=== PATIENT | female | born 1985 | race Caucasian/White ===

== ENCOUNTER 2019-03-01 13:37 | Outpatient (RCR) | payer MEDICAID ==
[2019-01-11 14:15] LABS: BASOPHILS % (AUTO) 0 % (0-10); EOSINOPHILS # (AUTO) 0.2 10^3/uL (0.0-0.3); EOSINOPHILS % (AUTO) 3 % (0-10); HEMATOCRIT 31 % (35-52); LYMPHOCYTES # (AUTO) 1.3 X 10^3 (1.0-4.0); LYMPHOCYTES % (AUTO) 24 % (12-44); MEAN CORPUSCULAR HEMOGLOBIN 26 PG (25-34); MEAN CORPUSCULAR HGB CONC 32 G/DL (32-36); MEAN CORPUSCULAR VOLUME 81 FL (80-99); MONOCYTES # (AUTO) 0.4 X 10^3 (0.0-1.0); MONOCYTES % (AUTO) 8 % (0-12); NEUTROPHILS # (AUTO) 3.6 X 10^3 (1.8-7.8); NEUTROPHILS % (AUTO) 65 % (42-75); PLATELET COUNT 234 10^3/uL (130-400); RED CELL DISTRIBUTION WIDTH 15.2 % (10.0-14.5); WHITE BLOOD COUNT 5.6 10^3/uL (4.3-11.0)
[2019-01-11 14:47] LABS: ALANINE AMINOTRANSFERASE 13 U/L (0-55); ALBUMIN 4.2 GM/DL (3.2-4.5); ALKALINE PHOSPHATASE 90 U/L (40-136); BILIRUBIN,TOTAL 0.3 MG/DL (0.1-1.0); BUN/CREATININE RATIO 23; CALCIUM 8.9 MG/DL (8.5-10.1); CARBON DIOXIDE 23 MMOL/L (21-32); CHLORIDE 107 MMOL/L (98-107); CREATININE SERUM 0.82 MG/DL (0.60-1.30); GFR ESTIMATED > 60; GLUCOSE 91 MG/DL (70-105); POTASSIUM 3.9 MMOL/L (3.6-5.0); SODIUM 139 MMOL/L (135-145); TOTAL PROTEIN 7.1 GM/DL (6.4-8.2)
[2019-01-22 16:06] LABS: BASOPHILS % (AUTO) 0 % (0-10); EOSINOPHILS # (AUTO) 0.2 10^3/uL (0.0-0.3); EOSINOPHILS % (AUTO) 3 % (0-10); HEMATOCRIT 32 % (35-52); LYMPHOCYTES # (AUTO) 1.5 X 10^3 (1.0-4.0); LYMPHOCYTES % (AUTO) 27 % (12-44); MEAN CORPUSCULAR HEMOGLOBIN 25 PG (25-34); MEAN CORPUSCULAR HGB CONC 31 G/DL (32-36); MEAN CORPUSCULAR VOLUME 81 FL (80-99); MEAN PLATELET VOLUME 9.4 FL (7.4-10.4); MONOCYTES # (AUTO) 0.4 X 10^3 (0.0-1.0); MONOCYTES % (AUTO) 8 % (0-12); NEUTROPHILS # (AUTO) 3.3 X 10^3 (1.8-7.8); NEUTROPHILS % (AUTO) 62 % (42-75); PLATELET COUNT 349 10^3/uL (130-400); RED CELL DISTRIBUTION WIDTH 15.2 % (10.0-14.5); WHITE BLOOD COUNT 5.4 10^3/uL (4.3-11.0)
[2019-01-22 16:33] LABS: ALANINE AMINOTRANSFERASE 14 U/L (0-55); ALBUMIN 4.1 GM/DL (3.2-4.5); ALKALINE PHOSPHATASE 102 U/L (40-136); BILIRUBIN,TOTAL 0.2 MG/DL (0.1-1.0); BUN/CREATININE RATIO 23; CARBON DIOXIDE 29 MMOL/L (21-32); CHLORIDE 107 MMOL/L (98-107); CREATININE SERUM 0.73 MG/DL (0.60-1.30); GFR ESTIMATED > 60; GLUCOSE 92 MG/DL (70-105); POTASSIUM 3.8 MMOL/L (3.6-5.0); SODIUM 142 MMOL/L (135-145); TOTAL PROTEIN 7.3 GM/DL (6.4-8.2)
[2019-02-22 10:35] LABS: BASOPHILS % (AUTO) 0 % (0-10); EOSINOPHILS # (AUTO) 0.1 10^3/uL (0.0-0.3); EOSINOPHILS % (AUTO) 1 % (0-10); HEMATOCRIT 34 % (35-52); HEMOGLOBIN 10.6 G/DL (11.5-16.0); LYMPHOCYTES # (AUTO) 1.2 X 10^3 (1.0-4.0); LYMPHOCYTES % (AUTO) 25 % (12-44); MEAN CORPUSCULAR HEMOGLOBIN 25 PG (25-34); MEAN CORPUSCULAR HGB CONC 32 G/DL (32-36); MEAN CORPUSCULAR VOLUME 79 FL (80-99); MEAN PLATELET VOLUME 9.5 FL (7.4-10.4); MONOCYTES # (AUTO) 0.3 X 10^3 (0.0-1.0); MONOCYTES % (AUTO) 6 % (0-12); NEUTROPHILS # (AUTO) 3.4 X 10^3 (1.8-7.8); NEUTROPHILS % (AUTO) 68 % (42-75); PLATELET COUNT 338 10^3/uL (130-400); RED CELL DISTRIBUTION WIDTH 16.2 % (10.0-14.5)
[2019-02-22 10:55] LABS: ALANINE AMINOTRANSFERASE 19 U/L (0-55); ALBUMIN 4.1 GM/DL (3.2-4.5); ALKALINE PHOSPHATASE 113 U/L (40-136); BILIRUBIN,TOTAL 0.4 MG/DL (0.1-1.0); BUN/CREATININE RATIO 14; CARBON DIOXIDE 28 MMOL/L (21-32); CHLORIDE 105 MMOL/L (98-107); CREATININE SERUM 0.81 MG/DL (0.60-1.30); GFR ESTIMATED > 60; GLUCOSE 106 MG/DL (70-105); POTASSIUM 3.6 MMOL/L (3.6-5.0); SODIUM 141 MMOL/L (135-145); TOTAL PROTEIN 6.9 GM/DL (6.4-8.2)
[2019-03-01 13:56] LABS: BASOPHILS % (AUTO) 0 % (0-10); EOSINOPHILS # (AUTO) 0.1 10^3/uL (0.0-0.3); EOSINOPHILS % (AUTO) 2 % (0-10); HEMATOCRIT 31 % (35-52); HEMOGLOBIN 9.7 G/DL (11.5-16.0); LYMPHOCYTES # (AUTO) 1.2 X 10^3 (1.0-4.0); LYMPHOCYTES % (AUTO) 20 % (12-44); MEAN CORPUSCULAR HEMOGLOBIN 26 PG (25-34); MEAN CORPUSCULAR HGB CONC 32 G/DL (32-36); MEAN CORPUSCULAR VOLUME 81 FL (80-99); MEAN PLATELET VOLUME 9.8 FL (7.4-10.4); MONOCYTES # (AUTO) 0.4 X 10^3 (0.0-1.0); MONOCYTES % (AUTO) 7 % (0-12); NEUTROPHILS # (AUTO) 4.2 X 10^3 (1.8-7.8); NEUTROPHILS % (AUTO) 72 % (42-75); PLATELET COUNT 296 10^3/uL (130-400); RED CELL DISTRIBUTION WIDTH 16.9 % (10.0-14.5); WHITE BLOOD COUNT 5.8 10^3/uL (4.3-11.0)
[2019-03-01 14:15] LABS: ALANINE AMINOTRANSFERASE 18 U/L (0-55); ALBUMIN 4.1 GM/DL (3.2-4.5); ALKALINE PHOSPHATASE 104 U/L (40-136); BILIRUBIN,TOTAL 0.3 MG/DL (0.1-1.0); BUN/CREATININE RATIO 19; CARBON DIOXIDE 23 MMOL/L (21-32); CHLORIDE 108 MMOL/L (98-107); CREATININE SERUM 1.02 MG/DL (0.60-1.30); GFR ESTIMATED > 60; GLUCOSE 121 MG/DL (70-105); POTASSIUM 3.4 MMOL/L (3.6-5.0); SODIUM 142 MMOL/L (135-145)
== END 2019-04-11 | disposition home or self-care (01) ==
LOC: ONC 13:37
PROVIDERS: ATTEND Internal Medicine Hematology & Oncology
DX: C49.A3 Gastrointestinal stromal tumor of small intestine (principal)
CPT/HCPCS: 36415; 80053; 83615; 84443; 85025; 99213; 99214

== ENCOUNTER → 2019-03-01 | Outpatient (CLI) | payer BC, MEDICAID ==
[~2019-03-01] MED LIST: FRS325T PO; NITR-65 PO; OXYC-12 PO; PREN1TAB14 PO; PREN1TAB39 PO
--- NOTE | 2019-03-01 13:26 | Diagnostic Imaging Report ---
INDICATION: Right breast density. Study is performed for additional views. Correlation is made with screening study from 02/20/2019. Unilateral right 2-D and 3-D diagnostic mammography was performed with CAD. This included spot compression CC, rolled CC and 90 degree lateral views. Additional views fail to demonstrate a discrete mass. The area of density noted on the screening study shows normal dispersion and most likely represented superimposed tissue. No suspicious calcifications are seen. IMPRESSION: BI-RADS Category 1 Additional views fail to demonstrate a discrete mass. Patient may return to routine annual screening mammography. ACR BI-RADS Category 1: Negative. Result letter will be mailed to the patient. Note: At least 10% of breast cancer is not imaged by mammography. Dictated by: Dictated on workstation # [id number]
== END ==
LOC: RAD 12:53
PROVIDERS: ATTEND Internal Medicine Hematology & Oncology
DX: N63.10 Unspecified lump in the right breast, unspecified quadrant (principal); R92.2 Inconclusive mammogram

== ENCOUNTER → 2019-05-10 | Outpatient (CLI) | payer BC ==
[~2019-05-10] MED LIST changes: +CATHETER FLUSH 10 ML SYR IV PRN; +HOLD METFORMIN - RECEIVED CONTRAST 20 ML VIAL IV SCH; +IOHEXOL 350 MG/ML 100 ML (OMNIPAQUE 350) VIAL IV ONE; +NS 100 ML (IVPB) BAG IV ONE
--- NOTE | 2019-05-10 13:25 | Diagnostic Imaging Report ---
PROCEDURE: CT abdomen and pelvis with contrast, rule out appendicitis. TECHNIQUE: Multiple contiguous axial images were obtained through the abdomen and pelvis after the administration of intravenous contrast. All CT scans use one or more of the following dose optimizing techniques: automated exposure control, MA and/or KvP adjustment based on a patient size and exam type, or iterative reconstruction. INDICATION: Right upper quadrant abdominal pain. Patient has history of GIST tumor removed six months ago. COMPARISON: No prior studies are available for comparison. FINDINGS: The lung bases are clear. No discrete liver mass is detected. The gallbladder is surgically absent. No biliary ductal dilatation is seen. The pancreas and spleen are unremarkable. No adrenal mass is detected. Kidneys are unremarkable. Aorta is nonaneurysmal. No central retroperitoneal or mesenteric lymphadenopathy is detected. The small and large bowel loops are normal caliber. There is no ascites or fluid collection. No definite pelvic lymphadenopathy is seen. The uterus is unremarkable. There appear to be multiple cervical nabothian cysts. The bladder is unremarkable. The bony structures are nonacute. IMPRESSION: Essentially unremarkable CT of the abdomen and pelvis. No acute feature is detected. Dictated by: Dictated on workstation # [id number]
== END ==
LOC: RAD FS 12:35
PROVIDERS: ATTEND Surgery
DX: C49.A4 Gastrointestinal stromal tumor of large intestine (principal); C49.A3 Gastrointestinal stromal tumor of small intestine; E66.01 Morbid (severe) obesity due to excess calories; Z68.41 Body mass index [BMI] 40.0-44.9, adult
CPT/HCPCS: 74177

== ENCOUNTER → 2019-05-31 | Outpatient (CLI) | payer BC ==
[~2019-05-31] MED LIST changes: -CATHETER FLUSH 10 ML SYR IV PRN; -HOLD METFORMIN - RECEIVED CONTRAST 20 ML VIAL IV SCH; -IOHEXOL 350 MG/ML 100 ML (OMNIPAQUE 350) VIAL IV ONE; -NS 100 ML (IVPB) BAG IV ONE
[2019-05-31 10:06] LABS: BASOPHILS % (AUTO) 0 % (0-10); EOSINOPHILS # (AUTO) 0.1 10^3/uL (0.0-0.3); EOSINOPHILS % (AUTO) 1 % (0-10); HEMATOCRIT 37 % (35-52); HEMOGLOBIN 12.5 G/DL (11.5-16.0); LYMPHOCYTES # (AUTO) 1.2 X 10^3 (1.0-4.0); LYMPHOCYTES % (AUTO) 15 % (12-44); MEAN CORPUSCULAR HEMOGLOBIN 27 PG (25-34); MEAN CORPUSCULAR HGB CONC 34 G/DL (32-36); MEAN CORPUSCULAR VOLUME 80 FL (80-99); MEAN PLATELET VOLUME 9.4 FL (7.4-10.4); MONOCYTES # (AUTO) 0.5 X 10^3 (0.0-1.0); MONOCYTES % (AUTO) 6 % (0-12); NEUTROPHILS # (AUTO) 6.3 X 10^3 (1.8-7.8); NEUTROPHILS % (AUTO) 78 % (42-75); PLATELET COUNT 345 10^3/uL (130-400); RED CELL DISTRIBUTION WIDTH 15.2 % (10.0-14.5); WHITE BLOOD COUNT 8.1 10^3/uL (4.3-11.0)
[2019-05-31 10:27] LABS: ALANINE AMINOTRANSFERASE 23 U/L (0-55); ALBUMIN 4.4 GM/DL (3.2-4.5); ALKALINE PHOSPHATASE 99 U/L (40-136); BILIRUBIN,TOTAL 0.5 MG/DL (0.1-1.0); BUN/CREATININE RATIO 17; CALCIUM 9.5 MG/DL (8.5-10.1); CARBON DIOXIDE 25 MMOL/L (21-32); CHLORIDE 102 MMOL/L (98-107); CREATININE SERUM 0.82 MG/DL (0.60-1.30); GFR ESTIMATED > 60; GLUCOSE 114 MG/DL (70-105); POTASSIUM 3.8 MMOL/L (3.6-5.0); SODIUM 137 MMOL/L (135-145); TOTAL PROTEIN 7.6 GM/DL (6.4-8.2)
== END ==
LOC: EDSTATUS 10:11 → ONC 10:12
PROVIDERS: ATTEND Internal Medicine Hematology & Oncology
DX: C49.A3 Gastrointestinal stromal tumor of small intestine (principal)
CPT/HCPCS: 80053; 83615; 84443; 85025; 99213

== ENCOUNTER 2019-08-16 10:18 | Outpatient (RCR) | payer BC ==
[2019-08-16 10:29] LABS: BASOPHILS % (AUTO) 0 % (0-10); EOSINOPHILS # (AUTO) 0.1 10^3/uL (0.0-0.3); EOSINOPHILS % (AUTO) 1 % (0-10); HEMATOCRIT 38 % (35-52); HEMOGLOBIN 12.6 G/DL (11.5-16.0); LYMPHOCYTES % (AUTO) 18 % (12-44); MEAN CORPUSCULAR HEMOGLOBIN 27 PG (25-34); MEAN CORPUSCULAR HGB CONC 33 G/DL (32-36); MEAN CORPUSCULAR VOLUME 82 FL (80-99); MEAN PLATELET VOLUME 9.2 FL (7.4-10.4); MONOCYTES # (AUTO) 0.4 X 10^3 (0.0-1.0); MONOCYTES % (AUTO) 7 % (0-12); NEUTROPHILS # (AUTO) 4.3 X 10^3 (1.8-7.8); NEUTROPHILS % (AUTO) 74 % (42-75); PLATELET COUNT 358 10^3/uL (130-400); RED CELL DISTRIBUTION WIDTH 15.1 % (10.0-14.5); WHITE BLOOD COUNT 5.8 10^3/uL (4.3-11.0)
[2019-08-16 10:50] LABS: ALANINE AMINOTRANSFERASE 44 U/L (0-55); ALBUMIN 4.3 GM/DL (3.2-4.5); ALKALINE PHOSPHATASE 143 U/L (40-136); BILIRUBIN,TOTAL 0.5 MG/DL (0.1-1.0); BUN/CREATININE RATIO 19; CALCIUM 9.4 MG/DL (8.5-10.1); CARBON DIOXIDE 27 MMOL/L (21-32); CHLORIDE 104 MMOL/L (98-107); CREATININE SERUM 0.86 MG/DL (0.60-1.30); GFR ESTIMATED > 60; GLUCOSE 98 MG/DL (70-105); SODIUM 142 MMOL/L (135-145); TOTAL PROTEIN 7.8 GM/DL (6.4-8.2)
== END 2019-11-14 | disposition home or self-care (01) ==
LOC: OCC 10:18
PROVIDERS: ATTEND Internal Medicine Hematology & Oncology
DX: Z51.81 Encounter for therapeutic drug level monitoring (principal); C49.A3 Gastrointestinal stromal tumor of small intestine; Z90.49 Acquired absence of other specified parts of digestive tract
CPT/HCPCS: 80053; 83615; 85025; G0463

== ENCOUNTER 2019-11-18 16:01 | Emergency (ER) | payer BC ==
[~2019-11-18] VITALS: Ht 162 cm; Wt 93.5 kg
--- NOTE | 2019-11-18 16:16 | ED GI ---
General Chief Complaint: Abdominal/GI Problems Stated Complaint: ABD PAIN/BLOOD IN STOOL History of Present Illness Date Seen by Provider: Nov 18, 2019 Time Seen by Provider: 16:11 Initial Comments 34-year-old female presents with abdominal pain and cramping, bruise on her left flank that she is unsure where it came from. Some pain in her flank. And some bloody stool. Patient reports that she had a stomachache and some pain earlier today and she is out of the bathroom. She went home and after while she had a loose stool and then it became bloody with. Bright red blood. Patient denies any recent injuries to her flank that would cause a bruise. 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 Patient denies any fevers or chills. She is nauseated but has not vomited. Allergies and Home Medications Allergies Coded Allergies: Codeine (Unverified Adverse Reaction, Mild, 08/23/10) Home Medications Ferrous Sulfate 325 Mg Tablet, 1 TAB PO BID, (Reported) Oxycodone Hcl/Acetaminophen 1 Each Tablet, 1 EACH PO Q4H, (Reported) As needed for pain Vits W-Ca,Fe,Fa(<1MG) 1 Each Tablet, 1 EACH PO DAILY, (Reported) Take for as long as Patient Home Medication List Home Medication List Reviewed: Yes Review of Systems Review of Systems Constitutional: No chills, No fever EENTM: No Symptoms Reported Respiratory: Denies Cough, Denies Shortness of Air Cardiovascular: Denies Chest Pain, Denies Irregular Heart Rate, Denies Lightheadedness Gastrointestinal: Abdominal Pain, Diarrhea, Nausea, Rectal Bleeding; Denies V omiting Musculoskeletal: back pain Skin: other (ecchymosis left flank) Psychiatric/Neurological: No Symptoms Reported Endocrine: No Symptoms Reported Hematologic/Lymphatic: No Symptoms Reported Past Potkgtg-Oxnohz-Vdwkir Hx Past Med/Social Hx: Reviewed Nursing Past Med/Soc Hx Patient Social History Recent Foreign Travel: No Contact w/Someone Who Travel: No Past Medical History Reproductive Disorders: No Physical Exam Vital Signs Vital Signs - First Documented 11/18/19 16:19 Temp 36.5 Pulse 87 Resp 18 B/P (MAP) 131/76 (94) Pulse Ox 100 Capillary Refill : Height/Weight/BMI Height: '" Weight: lbs. oz. kg; BMI Method: General Appearance: no apparent distress HEENT: PERRL/EOMI Neck: full range of motion Respiratory: chest non-tender, lungs clear Cardiovascular: normal peripheral pulses, regular rate, rhythm Gastrointestinal: soft; No distended, No guarding, No rebound; tenderness (mild bilateral lower quad) Rectal: normal rectal tone, heme positive stool, hemorrhoids Extremities: normal range of motion Back: CVA tenderness (L) Neurologic/Psychiatric: wad blanking press adjuster II-XII nml as tested, alert, normal mood/affect, oriented x 3 Skin: ecchymosis (left flank) Progress/Results/Core Measures Results/Orders Lab Results Laboratory Tests Test 11/18/19 16:15 11/18/19 16:20 Range/Units Urine Color YELLOW Urine Clarity SL CLOUDY Urine pH 5.5 5-9 Urine Specific [place] >1.030 1.016-1.022 Urine Protein NEGATIVE NEGATIVE Urine Glucose (UA) NEGATIVE NEGATIVE Urine Ketones NEGATIVE NEGATIVE Urine Nitrite NEGATIVE NEGATIVE Urine Bilirubin 1+ H NEGATIVE Urine Urobilinogen 0.2 < = 1.0 MG/DL Urine Leukocyte Esterase NEGATIVE NEGATIVE Urine RBC (Auto) NEGATIVE NEGATIVE Urine RBC NONE /HPF Urine WBC NONE /HPF Urine Squamous Epithelial Cells 5-10 /HPF Urine Crystals NONE /LPF Urine Bacteria NONE /HPF Urine Casts NONE /LPF Urine Mucus SMALL H /LPF Urine Culture Indicated NO White Blood Count 8.3 4.3-11.0 10^3/uL Red Blood Count 4.67 4.35-5.85 10^6/uL Hemoglobin 13.2 11.5-16.0 G/DL Hematocrit 40 35-52 % Mean Corpuscular Volume 86 80-99 FL Mean Corpuscular Hemoglobin 28 25-34 PG Mean Corpuscular Hemoglobin Concent 33 32-36 G/DL Red Cell Distribution Width 14.8 H 10.0-14.5 % Platelet Count 260 130-400 10^3/uL Mean Platelet Volume 9.9 7.4-10.4 FL Neutrophils (%) (Auto) 78 H 42-75 % Lymphocytes (%) (Auto) 15 12-44 % Monocytes (%) (Auto) 5 0-12 % Eosinophils (%) (Auto) 2 0-10 % Basophils (%) (Auto) 0 0-10 % Neutrophils # (Auto) 6.4 1.8-7.8 X 10^3 Lymphocytes # (Auto) 1.2 1.0-4.0 X 10^3 Monocytes # (Auto) 0.4 0.0-1.0 X 10^3 Eosinophils # (Auto) 0.2 0.0-0.3 10^3/uL Basophils # (Auto) 0.0 0.0-0.1 10^3/uL Prothrombin Time 13.5 12.2-14.7 SEC INR Comment 1.0 0.8-1.4 Activated Partial Thromboplast Time 28 24-35 SEC Sodium Level 141 135-145 MMOL/L Potassium Level 4.0 3.6-5.0 MMOL/L Chloride Level 102 98-107 MMOL/L Carbon Dioxide Level 28 21-32 MMOL/L Anion Gap 11 5-14 MMOL/L Blood Urea Nitrogen 22 H 7-18 MG/DL Creatinine 1.04 0.60-1.30 MG/DL Estimat Glomerular Filtration Rate 60 BUN/Creatinine Ratio 21 Glucose Level 146 H 70-105 MG/DL Calcium Level 9.4 8.5-10.1 MG/DL Corrected Calcium 9.1 8.5-10.1 MG/DL Total Bilirubin 0.3 0.1-1.0 MG/DL Aspartate Amino Transf (AST/SGOT) 12 5-34 U/L Alanine Aminotransferase (ALT/SGPT) 13 0-55 U/L Alkaline Phosphatase 95 40-136 U/L Total Protein 7.3 6.4-8.2 GM/DL Albumin 4.4 3.2-4.5 GM/DL Lipase 18 8-78 U/L Serum Test, Qualitative NEGATIVE NEGATIVE My Orders Orders - REGINE ARGUETA DO Acute Abd Series (11/18/19 16:18) Comprehensive Metabolic Panel (11/18/19 16:18) Lipase (11/18/19 16:18) Ua Culture If Indicated (11/18/19 16:18) Hcg,Qualitative Serum (11/18/19 16:18) Ed Iv/Invasive Line Start (11/18/19 16:18) Cbc With Automated Diff (11/18/19 16:18) Protime With Inr (11/18/19 16:18) Partial Thromboplastin Time (11/18/19 16:18) Ct Abdomen/Pelvis W (11/18/19 17:16) Iohexol Injection (Omnipaque 350 Mg/Ml 1 (11/18/19 17:30) Received Contrast (Hold Metformin- Contr (11/18/19 17:30) Sodium Chloride Flush (Catheter Flush Sy (11/18/19 17:30) Ns (Ivpb) (Sodium Chloride 0.9% Ivpb Bag (11/18/19 17:30) Medications Given in ED Current Medications Medications Dose Ordered Sig/Serafin Route Start Time Stop Time Status Last Admin Dose Admin Iohexol 100 ml ONCE ONCE IV 11/18/19 17:30 11/18/19 17:31 DC 11/18/19 17:38 100 ML Sodium Chloride 10 ml NEEDED PRN IV 11/18/19 17:30 11/18/19 17:38 10 ML Sodium Chloride 100 ml ONCE ONCE IV 11/18/19 17:30 11/18/19 17:31 DC 11/18/19 17:38 100 ML Vital Signs/I&O 11/18/19 16:19 Temp 36.5 Pulse 87 Resp 18 B/P (MAP) 131/76 (94) Pulse Ox 100 Progress Progress Note : Time: 18:08 Progress Note Patient with colitis on her CT scan. Patient with normal WBC and labs otherwise. I discussed with her the need to have follow-up with a general surgeon for a colonoscopy. At this time I will defer treating her with antibiotics. I recommend she try clear liquid diet for 24 hours and slowly advance her diet. She should follow-up with her primary care provider in a couple days for recheck of her symptoms. She can return to the ER if symptoms worsen. Patient's discharged home in stable condition Diagnostic Imaging Diagonstic Imaging: Xray Plain Films/CT/US/NM/MRI: abdomen Comments [facility] [place], [place] NAME: PATRICIO RANGEL [facility] REC#: [id number] PT STATUS: REG ER : 1985 PHYSICIAN: REGINE ARGUETA DO ADMIT DATE: 11/18/19/ER FS Signed Date of Exam:11/18/19 ACUTE ABD SERIES INDICATION: Lower abdominal pain. Blood in stools The upright chest shows no abnormality. Supine and upright views of the abdomen shows the bowel gas pattern to be within normal limits. There is no free intraperitoneal air. There is no mass or calculus. There are changes of prior cholecystectomy. There is mild scoliosis. IMPRESSION: No acute abnormality is seen. [facility] [place], [place] NAME: PATRICIO RANGEL [facility] REC#: [id number] PT STATUS: REG ER : 1985 PHYSICIAN: REGINE ARGUETA DO ADMIT DATE: 11/18/19/ER FS Draft Date of Exam:11/18/19 CT ABDOMEN/PELVIS W PROCEDURE: CT abdomen and pelvis with contrast. TECHNIQUE: Multiple contiguous axial images were obtained through the abdomen and pelvis after administration of intravenous contrast. Auto Exposure Controls were utilized during the CT exam to meet ALARA standards for radiation dose reduction. INDICATION: Abdominal pain. Rectal bleeding. COMPARISON is made with study from 05/10/2019. FINDINGS: The gallbladder is absent. The liver and bile ducts are normal. The spleen, pancreas and adrenals are normal. Kidneys, ureters and bladder are normal. There is diffuse spasm and edema of the colon from the mid transverse colon down to the rectum consistent with a diffuse colitis. No obstruction or perforation is evident at this time. The proximal colon is not involved and not dilated. Small bowel is within normal limits. There is no ascites. There is no abscess. There is no acute bony abnormality. IMPRESSION: 1. There is diffuse spasm and edema of the left half of the colon consistent with a diffuse colitis. This is a change from the 05/10/2019 CT. Departure Impression Primary Impression: Colitis Disposition: 01 HOME, SELF-CARE Condition: Stable Departure-Patient Inst. Referrals: JENNY WORTHY (PCP/Family) Primary Care Physician Patient Instructions: Colitis (DC) Add. Discharge Instructions: Follow-up with your primary care provider in 2-3 days for recheck of today symptoms All discharge instructions reviewed with patient and/or family. Voiced understanding. REGINE ARGUETA DO Nov 18, 2019 16:16
[2019-11-18 16:32] LABS: BILIRUBIN,URINE 1+ (NEGATIVE); CLARITY,URINE SL CLOUDY; COLOR,URINE YELLOW; GLUCOSE, URINE (UA) NEGATIVE (NEGATIVE); KETONES,URINE NEGATIVE (NEGATIVE); LEUKOCYTE ESTERASE ,URINE NEGATIVE (NEGATIVE); NITRITE,URINE NEGATIVE (NEGATIVE); PH,URINE 5.5 (5-9); PROTEIN,URINE NEGATIVE (NEGATIVE)
[2019-11-18 16:48] LABS: WHITE BLOOD COUNT 8.3 10^3/uL (4.3-11.0)
[2019-11-18 16:49] LABS: BASOPHILS % (AUTO) 0 % (0-10); EOSINOPHILS # (AUTO) 0.2 10^3/uL (0.0-0.3); EOSINOPHILS % (AUTO) 2 % (0-10); HEMATOCRIT 40 % (35-52); HEMOGLOBIN 13.2 G/DL (11.5-16.0); LYMPHOCYTES # (AUTO) 1.2 X 10^3 (1.0-4.0); LYMPHOCYTES % (AUTO) 15 % (12-44); MEAN CORPUSCULAR HEMOGLOBIN 28 PG (25-34); MEAN CORPUSCULAR HGB CONC 33 G/DL (32-36); MEAN CORPUSCULAR VOLUME 86 FL (80-99); MEAN PLATELET VOLUME 9.9 FL (7.4-10.4); MONOCYTES # (AUTO) 0.4 X 10^3 (0.0-1.0); MONOCYTES % (AUTO) 5 % (0-12); NEUTROPHILS # (AUTO) 6.4 X 10^3 (1.8-7.8); NEUTROPHILS % (AUTO) 78 % (42-75); PLATELET COUNT 260 10^3/uL (130-400); RED CELL DISTRIBUTION WIDTH 14.8 % (10.0-14.5)
[2019-11-18 16:58] LABS: ALBUMIN 4.4 GM/DL (3.2-4.5); BILIRUBIN,TOTAL 0.3 MG/DL (0.1-1.0); CALCIUM 9.4 MG/DL (8.5-10.1); CREATININE SERUM 1.04 MG/DL (0.60-1.30); TOTAL PROTEIN 7.3 GM/DL (6.4-8.2)
--- NOTE | 2019-11-18 17:08 | Diagnostic Imaging Report ---
INDICATION: Lower abdominal pain. Blood in stools The upright chest shows no abnormality. Supine and upright views of the abdomen shows the bowel gas pattern to be within normal limits. There is no free intraperitoneal air. There is no mass or calculus. There are changes of prior cholecystectomy. There is mild scoliosis. IMPRESSION: No acute abnormality is seen. Dictated by: Dictated on workstation # [id number]
[2019-11-18] MEDS ORDERED: CATHETER FLUSH 10 ML SYR IV PRN (17:30)
[2019-11-18] MEDS ORDERED: NS 100 ML (IVPB) BAG IV ONE (17:30)
[2019-11-18] MEDS ORDERED: HOLD METFORMIN - RECEIVED CONTRAST 20 ML VIAL IV SCH (17:30)
[2019-11-18] MEDS ORDERED: IOHEXOL 350 MG/ML 100 ML (OMNIPAQUE 350) VIAL IV ONE (17:30)
[2019-11-18 17:57] LABS: PROTHROMBIN TIME PATIENT 13.5 SEC (12.2-14.7)
--- NOTE | 2019-11-18 18:01 | Diagnostic Imaging Report ---
PROCEDURE: CT abdomen and pelvis with contrast. TECHNIQUE: Multiple contiguous axial images were obtained through the abdomen and pelvis after administration of intravenous contrast. Auto Exposure Controls were utilized during the CT exam to meet ALARA standards for radiation dose reduction. INDICATION: Abdominal pain. Rectal bleeding. COMPARISON is made with study from 05/10/2019. FINDINGS: The gallbladder is absent. The liver and bile ducts are normal. The spleen, pancreas and adrenals are normal. Kidneys, ureters and bladder are normal. There is diffuse spasm and edema of the colon from the mid transverse colon down to the rectum consistent with a diffuse colitis. No obstruction or perforation is evident at this time. The proximal colon is not involved and not dilated. Small bowel is within normal limits. There is no ascites. There is no abscess. There is no acute bony abnormality. IMPRESSION: 1. There is diffuse spasm and edema of the left half of the colon consistent with a diffuse colitis. This is a change from the 05/10/2019 CT. Dictated by: Dictated on workstation # [id number]
[2019-11-18 18:22] VITALS: BP 120/74
--- OUTSIDE RECORDS SUMMARY | 2019-11-18 19:39 | XMS REPORT ---
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 Active 94251294 Problem Fibromyalgia M79.7 Active 9327861 05 ALLERGIES Substance Reaction Event Type Date Status Plastic Tape Unknown Non Drug Allergy Jul, Active ENCOUNTERS Encounter Location Date Diagnosis [facility] [address] [place] [address] Sep, Cellulitis of leg L03.119 [facility] [address] [place] [address] Sep, Poison shruti dermatitis L23.7 [facility] [address] [place] [address] Jul, Migraine G43.909 ; Right low back pain M 54.5 and Numbness of fingers R20.0 [facility] [address] [place] [address] Jun, Tonsillitis J03.90 and Sore throat J02.9 [facility] [address] [facility] [id number] [address] [place] [phone] Mar, [facility] [address] [place] [id number] [address] [place] [phone] Mar, [facility] [address] [facility] [id number] [address] [place] [phone] Mar, Acute cystitis with hematuri a N30.01 ; Nausea R11.0 and BMI 40.0-44.9, adult Z68.41 [facility] [address] [facility] [id number] [address] [place] [address] Jan, BMI 40.0-44.9, adult Z68.41 and Acute strain of neck muscle, [facility] [address] [address] 14 Mar, 17 Fibromyalgia M79.[address] [address] 08 Mar, 17 Acute left- sided low back pain without sciatica M54.[address] [address] Mar, 17 Fibromyalgia M79.[address] [address] Mar, 17 Fibromyalgia M79.[address] [address] 14 Dec, 17 Ganglion of left wrist M67.432 and Fibromyalgia M79.[address] [address] Nov, 17 Fibromyalgia M79.[address] [address] 15 Sep, 17 Polyarticular arthritis M13.0 ; Fibromyalgia M79.7 ; Irritable bowel syndrome with constipation K58.1 and Primary osteoarthritis of both knees M17.[address] [address] Sep, 17 Fibromyalgia M79.[address] [address] August, 17 Fatigue, unspecified type R53.83 [facility] [address] [address] August, 17 Fibromyalgia M79.[address] [address] Jun, 17 Polyarticular arthritis M13.0 ; Fibromyalgia M79.7 and Irritable bowel syndrome with constipation K58.1 [facility] [address] [place] [address] Jun, 17 Polyarticular arthritis M13.0 [facility] [address] [place] [address] May, 17 Polyarticular arthritis M13.0 [facility] [address] [place] [address] Jan, 16 Arthralgia, unspecified joint M25.50 and Iron deficiency anemia, unspecified iron deficiency anemia type D50.9 [facility] [address] [place] [address] Nov, 16 Myalgia M79.1 and Iron deficiency anemia, unspecified iron deficiency anemia type D50.9 [facility] [address] [place] [address] Oct, 16 Pain in left wrist M25.532 ; Pain in right wrist M25.531 ; Iron deficiency anemia, unspecified iron deficiency anemia type D50.9 and Constipation, unspecified constipation type K59.00 [facility] [address] [place] [address] Oct, [address] [address] Oct, 16 Pain in right wrist M25.531 ; Pain in left wrist M25.532 and Elevated blood pressure I10 [facility] [address] [id number] [address] [place] [address] Jul, [facility] [address] [facility] [id number] [address] [place] [phone] Jul, [facility] [address] [id number] [address] [place] [phone] August, [facility] [address] [facility] [id number] [address] [place] [phone] August, [facility] [address] [place] [id number] [address] [place] [phone] Jul, [facility] [address] [facility] [id number] [address] [place] [phone] Jul, Margi GAO [address] [place] [address] Mar, [facility] [address] [facility] [id number] [address] [place] [phone] Mar, [facility] [address] [facility] [id number] [address] [place] [phone] Jan, [facility] [address] [facility] [id number] [address] [place] [phone] Jan, [facility] [address] [facility] [id number] [address] [place] [phone] Jan, IMMUNIZATIONS No Known Immunizations SOCIAL HISTORY Never Assessed REASON FOR VISIT EMR-[facility] PLAN OF CARE VITAL SIGNS MEDICATIONS Medication Instructions Dosage Frequency Start Date End Date Duration S tatus Nystatin-Triamcinolone 100,000-0.1 unit/g-% 1 aubrey by Topical route 2 times per day for 14 day(s) Mar, Active RESULTS No Results PROCEDURES No Known procedures INSTRUCTIONS MEDICATIONS ADMINISTERED No Known Medications MEDICAL (GENERAL) HISTORY Type Description Date Medical History depression Medical History alopecia totalis Medical History preeclampsia Surgical History wisdom teeth extraction Surgical History cholecystectomy Surgical History right knee arthroscopy Surgical History section Surgical History dilatation and curettage Surgical History tubal ligation Surgical History ablasion 08/2017 Hospitalization History Surgery(s)/Childbirth(s) only
--- OUTSIDE RECORDS SUMMARY | 2019-11-18 19:39 | XMS REPORT ---
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 Active 54978940 Problem Fibromyalgia M79.7 Active 5207791 05 Problem Primary osteoarthritis of both knees M17.0 Active 596866674 Problem Migraine without status migr ainosus, not intractable, unspecified migraine type G43.909 Active 71951487 ALLERGIES No Information ENCOUNTERS Encounter Location Date Diagnosis [address] [id number], [place] [address] 26 Sep, 2019 [facility] [address] [facility] [address] [place] [address] [address] 24 Sep, 2019 Dental examination Z01.20 and Caries K02 .9 [facility] [address] [id number], [place] [address] 18 Sep, 2019 Mouth pain K13.79 [facility] [facility] [address] [address] 30 Jul, 2019 Dental examination Z01.20 and Caries K02 .9 [facility] [address] 340 [id number], [place] [address] 02 Jun, 2019 Persistent cough R05 ; Flu-l bobo symptoms R68.89 and Wheezing R06.2 [facility] [address] [id number] [place] [address] Oct, Constipation, unspecified co nstipation type K59.00 and Right upper quadrant abdominal pain R10.11 [facility] [address] [id number] [place] [address] Sep, Cellulitis of leg L03.119 [facility] [address] [id number], [place] [address] Sep, Poison shruti dermatitis L23.7 [facility] [address] [id number], [place] [address] Jul, Migraine G43.909 ; Right low back pain M54.5 and Numbness of fingers R20.0 [facility] [address] [id number] [place] [address] Jun, Tonsillitis J03.90 and Sore throat J02.9 [facility] [address] [place] [id number] [address] [place] [address] Mar, [facility] [address] [place] [address] Mar, [facility] [address] [place] [address] Mar, Acute cystitis with hematuri a N30.01 ; Nausea R11.0 and BMI 40.0-44.9, adult Z68.41 [facility] [address] [place] [id number] [address] [place] [address] Jan, BMI 40.0-44.9, adult Z68.41 and Acute strain of neck muscle, initial encounter S16.1[facility] [address] [place] [address] 14 Mar, Fibromyalgia M79.7 [facility] [address] [place] [address] 08 Mar, Acute left- sided low back pain without sciatica M54.5 [facility] [address] [place] [address] Mar, 17 Fibromyalgia M79.7 [facility] [address] [place] [address] 06 Mar, 17 Fibromyalgia M79.7 [facility] [address] [place] [address] 14 Dec, 17 Ganglion of left wrist M67.432 and Fibromyalgia M79.7 [facility] [address] [place] [address] Nov, 17 Fibromyalgia M79.7 [facility] [address] [place] [address] 15 Sep, 17 Polyarticular arthritis M13.0 ; Fibromyalgia M79.7 ; Irritable bowel syndrome with constipation K58.1 and Primary osteoarthritis of both knees M17.0 [facility] [address] [place] [address] Sep, 17 Fibromyalgia M79.7 [facility] [address] [place] [address] August, 17 Fatigue, unspecified type R53.83 [facility] [address] [place] [address] August, 17 Fibromyalgia M79.7 [facility] [address] [address] Jun, 17 Polyarticular arthritis M13.0 ; Fibromyalgia M79.7 and Irritable bowel syndrome with constipation K58.1 [facility] [address] [place] [address] Jun, 17 Polyarticular arthritis M13.0 [facility] [address] [place] [address] May, 17 Polyarticular arthritis M13.0 [facility] [address] [place] [address] Jan, 16 Arthralgia, unspecified joint M25.50 and Iron deficiency anemia, unspecified iron deficiency anemia type D50.9 [facility] [address] [place] [address] Nov, 16 Myalgia M79.1 and Iron deficiency anemia, unspecified iron deficiency anemia type D50.9 [facility] [address] [place] [address] Oct, 16 Pain in left wrist M25.532 ; Pain in right wrist M25.531 ; Iron deficiency anemia, unspecified iron deficiency anemia type D50.9 and Constipation, unspecified constipation type K59.00 [facility] [address] [place] [address] Oct, [address] [address] Oct, 16 Pain in right wrist M25.531 ; Pain in left wrist M25.532 and Elevated blood pressure I10 [facility] [address] [facility] [id number] [address] [place] [address] Jul, [facility] [address] [facility] [id number] [address] [place] [address] Jul, [facility] [address] [id number] [address] [place] [address] August, [facility] [address] [facility] [id number] [address] [place] [address] August, [facility] [address] [facility] [id number] [address] [place] [address] Jul, [facility] [address] [facility] [id number] [address] [place] [address] Jul, [facility] [address] [place] [address] Mar, 13 [facility] [address] [id number] [address] [place] [address] Mar, [facility] [address] [facility] [id number] [address] [place] [address] Jan, [facility] [address] [facility] [id number] [address] [place] [address] Jan, [facility] [address] [facility] [id number] [address] [place] [address] Jan, IMMUNIZATIONS No Known Immunizations SOCIAL HISTORY Never Assessed REASON FOR VISIT PLAN OF CARE VITAL SIGNS Height 65 in 2013-03-11 Weight 230 lbs 2013-03-11 Temperature 98.4 degrees Fahrenheit 2013-03-11 Heart Rate 88 bpm 2013-03-11 Respiratory Rate 20 2013-03-11 Blood pressure systolic 110 mmHg 2013-03-11 Blood pressure diastolic 62 mmHg 2013-03-11 MEDICATIONS Unknown Medications RESULTS No Results PROCEDURES No Known procedures [...]
--- OUTSIDE RECORDS SUMMARY | 2019-11-18 19:39 | XMS REPORT ---
Author Author Juan SYLVESTER Organization [facility] Address [address] [place] [address] Care Team Providers Care Research Manager Name Role Phone VIRGINIA SYLVESTERTA Unavailable PROBLEMS Type Condition ICD9-CM Code [id number] Code Onset Dates Condition S tatus SNOMED Code Problem Primary osteoarthritis of both knees M17.0 Active 962889779 Problem Fibromyalgia M79.7 Active 5313353 05 Problem Unspecified hemorrhoids without mention of complication 45 5.6 Active 31063636 Problem Polyarticular arthritis M13.0 Active 44183277 Problem Iron deficiency anemia, unspecified iron deficiency an emia type D50.9 Active 86955270 ALLERGIES Substance Reaction Event Type Date Status Codeine Phosphate Unknown Drug Allergy Mar, Active Plastic Tape Unknown Non Drug Allergy Mar, Active ENCOUNTERS Encounter Location Date Diagnosis [facility] [address] [id number] [address] [place] [address] Mar, [facility] [address] [address] Mar, [facility] [address] [address] [id number] [address] [place] [address] Mar, Acute cystitis with hematuri a N30.01 ; Nausea R11.0 and BMI 40.0-44.9, adult Z68.41 [facility] [address] [id number] [address] [place] [address] Jan, BMI 40.0-44.9, adult Z68.41 and Acute strain of neck muscle, initial encounter S16.1XXA [facility] [address] [place] [address] 14 Mar, 17 Fibromyalgia M79.7 [facility] [address] [place] [address] Mar, 17 Acute left- sided low back pain without sciatica M54.5 [facility] [place] [address] [place] [address] Mar, 17 Fibromyalgia M79.7 [facility] [address] [place] [address] Mar, 17 Fibromyalgia M79.7 [facility] [address] [address] 14 Dec, 17 Ganglion of left wrist M67.432 and Fibromyalgia M79.7 [facility] [place] [address] [place] [address] Nov, 17 Fibromyalgia M79.7 [facility] [address] [address] 15 Sep, 17 Polyarticular arthritis M13.0 ; Fibromyalgia M79.7 ; Irritable bowel syndrome with constipation K58.1 and Primary osteoarthritis of both knees M17.0 [facility] [place] [address] [place] [address] Sep, 17 Fibromyalgia M79.7 [facility] [address] [address] August, 17 Fatigue, unspecified type R53.83 [facility] [place] [address] [place] [address] August, 17 Fibromyalgia M79.[address] [address] Jun, 17 Polyarticular arthritis M13.0 ; Fibromyalgia M79.7 and Irritable bowel syndrome with constipation K58.1 [facility] [place] [address] [place] [address] Jun, 17 Polyarticular arthritis M13.[address] [address] [address] May, 17 Polyarticular arthritis M13.0 [facility] [address] [place] [address] Jan, 16 Arthralgia, unspecified joint M25.50 and Iron deficiency anemia, unspecified iron deficiency anemia type D50.9 [facility] [place] [address] [place] [address] Nov, 16 Myalgia M79.1 and Iron deficiency anemia, unspecified iron deficiency anemia type D50.9 [facility] [address] [place] [address] Oct, 16 Pain in left wrist M25.532 ; Pain in right wrist M25.531 ; Iron deficiency anemia, unspecified iron deficiency anemia type D50.9 and Constipation, unspecified constipation type K59.00 [facility] [address] [place] [address] Oct, 16 [facility] [address] [place] [address] Oct, 16 Pain in right wrist M25.531 ; Pain in left wrist M25.532 and Elevated blood pressure I10 [facility] [address] [facility] [id number] [address] [place] [address] Jul, [facility] [address] [facility] [id number] [address] [place] [address] Jul, [facility] [address] [facility] [id number] [address] [place] [address] August, [facility] [address] [facility] [id number] [address] [place] [address] August, [facility] [address] [facility] [id number] [address] [place] [address] Jul, [facility] [address] [facility] [id number] [address] [place] [address] Jul, [facility] [address] [place] [address] Mar, 13 [facility] [address] [facility] [id number] [address] [place] [address] Mar, [facility] [address] [facility] [id number] [address] [place] [address] Jan, [facility] [address] [facility] [id number] [address] [place] [address] Jan, [facility] [address] [facility] [id number] [address] [place] [address] Jan, IMMUNIZATIONS No Known Immunizations SOCIAL HISTORY Never Assessed REASON FOR VISIT Nausea/vomiting/diarrhea and fever on and off since Monday.--PRANAV Le PLAN OF CARE Activity Details Follow Up if not improving with PCP or reg follow up Reason: Pending Test CULTURE, URINE VITAL SIGNS Height 65 in 2018-03-29 Weight 255.2 lbs 2018-03-29 Temperature 99.1 degrees Fahrenheit 2018-03-29 Heart Rate 88 bpm 2018-03-29 Respiratory Rate 18 2018-03-29 BMI 42.46 kg/m2 2018-03-29 Blood pressure systolic 130 mmHg 2018-03-29 Blood pressure diastolic 80 mmHg 2018-03-29 MEDICATIONS Medication Instructions Dosage Frequency Start Date End Date Duration S tatus Sulfamethoxazole-Trimethoprim 800-160 MG Orally Twice a day 1 table t 12h Mar, 10 day(s) Active Amitriptyline HCl 75 MG Orally Once a day at bedtime 1 tablet Active Promethazine HCl 25 MG Orally every 6 hrs 1 tablet as needed 6h Mar, 5 days Active Lisinopril-Hydrochlorothiazide 10-12.5 MG Orally Once a day 1 tablet 24h Active Gabapentin 800 MG Orally Three times a day 1 tablet 8h Active Levothyroxine Sodium 25 MCG Orally Once a day 1 tablet on an empty stomach in the morning 24h Active Duloxetine HCl 30 MG Orally Once a day 1 capsule 24h Mar, Active Diclofenac Sodium 75 MG Orally Twice a day 1 tablet with food or milk 12h 30 day(s) Active RESULTS Name Result Date Reference Range UA LONG DIP (IN HOUSE) 2018-03-29 Lot # [id number] Exp date 10/2018 Clarity turbid Color red Odor yes GLU GABI KET SG BLO pH Protein URO NIT SHERRY + 1 Lot # [id number] Exp date 03/2018 PROCEDURES Procedure Date Ordered Result Body Site URINALYSIS, AUTO, W/O SCOPE Mar 29, 2018 LAB NOT BILLED BY [facility] Mar 29, 2018 INSTRUCTIONS MEDICATIONS ADMINISTERED No Known Medications MEDICAL (GENERAL) HISTORY Type Description Date Medical History depression Medical History alopecia totalis Medical History preeclampsia Surgical History wisdom teeth extraction Surgical History cholecystectomy Surgical History right knee arthroscopy Surgical History section Surgical History dilatation and curettage Surgical History tubal ligation Surgical History ablasion 08/2017 Hospitalization History Surgery(s)/Childbirth(s) only
--- OUTSIDE RECORDS SUMMARY | 2019-11-18 19:39 | XMS REPORT ---
Author Author Juan SYLVESTER Organization [facility] Address [address] [place] [address] Care Team Providers Care Sound Art Instructor Name Role Phone VIRGINIA SYLVESTERTA Unavailable PROBLEMS Type Condition ICD9-CM Code BCC45-OL Code Onset Dates Condition S tatus SNOMED Code Problem Primary osteoarthritis of both knees M17.0 Active 115601772 Problem Fibromyalgia M79.7 Active 2412542 05 Problem Unspecified hemorrhoids without mention of complication 45 5.6 Active 32561176 Problem Polyarticular arthritis M13.0 Active 18151833 Problem Iron deficiency anemia, unspecified iron deficiency an emia type D50.9 Active 58365389 ALLERGIES No Information ENCOUNTERS Encounter Location Date Diagnosis [facility] [address] [address] Mar, [facility] [address] [address] Mar, Acute cystitis with hematuri a N30.01 ; Nausea R11.0 and BMI 40.0-44.9, adult Z68.41 [facility] [place] [id number] [address] [place] [address] Jan, BMI 40.0-44.9, adult Z68.41 and Acute strain of neck muscle, initial encounter S16.1XXA [facility] [address] [place] [address] 14 Mar, 17 Fibromyalgia M79.7 [facility] [address] [place] [address] 08 Mar, 17 Acute left- sided low back pain without sciatica M54.5 [facility] [address] [place] [address] 29 Mar, 17 Fibromyalgia M79.7 [facility] [address] [place] [address] 06 Mar, 17 Fibromyalgia M79.7 [facility] [place] [address] [place] [address] 14 Dec, 17 Ganglion of left wrist M67.432 and Fibromyalgia M79.7 [facility] [address] [address] Nov, 17 Fibromyalgia M79.[address] [address] 15 Sep, 17 Polyarticular arthritis M13.0 ; Fibromyalgia M79.7 ; Irritable bowel syndrome with constipation K58.1 and Primary osteoarthritis of both knees M17.[address] [address] Sep, 17 Fibromyalgia M79.[address] [address] August, 17 Fatigue, unspecified type R53.83 [facility] [address] [place] [address] August, 17 Fibromyalgia M79.[address] [address] Jun, 17 Polyarticular arthritis M13.0 ; Fibromyalgia M79.7 and Irritable bowel syndrome with constipation K58.[address] [address] 13 Jun, 17 Polyarticular arthritis M13.[address] [address] May, 17 Polyarticular arthritis M13.[address] [address] Jan, 16 Arthralgia, unspecified joint M25.50 and Iron deficiency anemia, unspecified iron deficiency anemia type D50.[address] [address] 09 Nov, 16 Myalgia M79.1 and Iron deficiency anemia, unspecified iron deficiency anemia type D50.[address] [address] Oct, 16 Pain in left wrist M25.532 ; Pain in right wrist M25.531 ; Iron deficiency anemia, unspecified iron deficiency anemia type D50.9 and Constipation, unspecified constipation type K59.00 [facility] [address] [place] [address] Oct, 16 [facility] [address] [place] [address] Oct, 16 Pain in right wrist M25.531 ; Pain in left wrist M25.532 and Elevated blood pressure I10 [facility] [address] [id number] [address] [place] [address] Jul, [facility] [address] [id number] [address] [place] [address] Jul, [facility] [address] [facility] [id number] [address] [place] [address] August, [facility] [address] [id number] [address] [place] [address] August, [facility] [address] [id number] [address] [place] [address] Jul, [facility] [address] [facility] [id number] [address] [place] [address] Jul, [facility] [address] [place] [address] Mar, 13 [facility] [address] [id number] [address] [place] [address] Mar, [facility] [address] [id number] [address] [place] [address] Jan, [facility] [address] [facility] [id number] [address] [place] [address] Jan, [facility] [address] [facility] [id number] [address] [place] [address] Jan, IMMUNIZATIONS No Known Immunizations SOCIAL HISTORY Never Assessed REASON FOR VISIT Medication question PLAN OF CARE VITAL SIGNS MEDICATIONS Unknown Medications RESULTS No Results PROCEDURES [...]
--- OUTSIDE RECORDS SUMMARY | 2019-11-18 19:39 | XMS REPORT ---
Author Author Juan Ansari Doctor Organization [facility] Address Unknown Phone Unavailable Care Team Providers Care Social Services Designee Name Role Phone Migration, Doctor Unavailable Unavailable PROBLEMS Type Condition ICD9-CM Code TWQ39-JH Code Onset Dates Condition S tatus SNOMED Code Problem Fibromyalgia M79.7 Active 20291218 Problem Primary osteoarthritis of both knees M17.0 Active 715335501 Problem Iron deficiency anemia, unspecified iron deficiency an emia type D50.9 Active 22022165 Problem Polyarticular arthritis M13.0 Active 34533470 ALLERGIES No Information ENCOUNTERS Encounter Location Date Diagnosis [facility] [address] [place] [address] Jul, Migraine G43.909 ; Right low back pain M 54.5 and Numbness of fingers R20.0 [facility] [address] [place] [address] Jun, Tonsillitis J03.90 and Sore throat J02.9 [facility] [address] [address] Mar, [facility] [address] [place] [address] Mar, [facility] [address] [address] Mar, Acute cystitis with hematuri a N30.01 ; Nausea R11.0 and BMI 40.0-44.9, adult Z68.41 [facility] [address] [address] Jan, BMI 40.0-44.9, adult Z68.41 and Acute strain of neck muscle, initial encounter S16.1XXA [facility] [place] [address] [place] [address] 14 Mar, 17 Fibromyalgia M79.7 [facility] [address] [place] [address] 08 Mar, 17 Acute left- sided low back pain without sciatica M54.5 [facility] [address] [place] [address] 29 Mar, 17 Fibromyalgia M79.7 [facility] [address] [place] [address] 06 Mar, 17 Fibromyalgia M79.7 [facility] [address] [address] 14 Dec, 17 Ganglion of left wrist M67.432 and Fibromyalgia M79.7 [facility] [address] [address] 02 Nov, 17 Fibromyalgia M79.7 [facility] [address] [address] 15 Sep, 17 Polyarticular arthritis M13.0 ; Fibromyalgia M79.7 ; Irritable bowel syndrome with constipation K58.1 and Primary osteoarthritis of both knees M17.0 [facility] [address] [place] [address] Sep, 17 Fibromyalgia M79.[address] [address] August, 17 Fatigue, unspecified type R53.[address] [address] August, 17 Fibromyalgia M79.7 [facility] [address] [address] Jun, 17 Polyarticular arthritis M13.0 ; Fibromyalgia M79.7 and Irritable bowel syndrome with constipation K58.1 [facility] [address] [place] [address] Jun, 17 Polyarticular arthritis M13.0 [facility] [address] [place] [address] May, 17 Polyarticular arthritis M13.0 [facility] [address] [address] Jan, 16 Arthralgia, unspecified joint M25.50 and Iron deficiency anemia, unspecified iron deficiency anemia type D50.9 [facility] [address] [place] [address] Nov, 16 Myalgia M79.1 and Iron deficiency anemia, unspecified iron deficiency anemia type D50.9 [facility] [address] [place] [address] Oct, 16 Pain in left wrist M25.532 ; Pain in right wrist M25.531 ; Iron deficiency anemia, unspecified iron deficiency anemia type D50.9 and Constipation, unspecified constipation type K59.00 [facility] [address] [place] [address] Oct, [address] [address] Oct, 16 Pain in right wrist M25.531 ; Pain in left wrist M25.532 and Elevated blood pressure I10 [facility] [address] [facility] [id number] [address] [place] [address] Jul, [facility] [address] [id number] [address] [place] [address] Jul, [facility] [address] [facility] [id number] [address] [place] [address] August, [facility] [address] [facility] [id number] [address] [place] [address] August, [facility] [address] [facility] [id number] [address] [place] [address] Jul, [facility] [address] [id number] [address] [place] [address] Jul, [facility] [address] [place] [address] Mar, 13 [facility] [address] [facility] [id number] [address] [place] [address] Mar, [facility] [address] [facility] [id number] [address] [place] [address] Jan, [facility] [address] [facility] [id number] [address] [place] [address] Jan, [facility] [address] [facility] [id number] [address] [place] [address] Jan, IMMUNIZATIONS No Known Immunizations SOCIAL HISTORY Never Assessed REASON FOR VISIT [place] [place] OF CARE VITAL SIGNS MEDICATIONS No Known Medications RESULTS No Results PROCEDURES No Known [...]
--- OUTSIDE RECORDS SUMMARY | 2019-11-18 19:39 | XMS REPORT ---
Author Author Juan Ansari Doctor Organization [facility] Address Unknown Phone Unavailable Care Team Providers Care Automatic Lathe Tender Name Role Phone Migration, Doctor Unavailable Unavailable PROBLEMS Type Condition ICD9-CM Code KJF35-TB Code Onset Dates Condition S tatus SNOMED Code Problem Fibromyalgia M79.7 Active 20291218 Problem Primary osteoarthritis of both knees M17.0 Active 915913005 Problem Iron deficiency anemia, unspecified iron deficiency an emia type D50.9 Active 70327875 Problem Polyarticular arthritis M13.0 Active 24166680 ALLERGIES No Information ENCOUNTERS Encounter Location Date Diagnosis [facility] [address] [place] [address] Jul, Migraine G43.909 ; Right low back pain M 54.5 and Numbness of fingers R20.0 [facility] [address] [place] [facility] [place] [address] Jun, Tonsillitis J03.90 and Sore throat J02.9 [facility] [address] [address] Mar, [facility] [address] [place] [address] Mar, [facility] [address] [address] Mar, Acute cystitis with hematuri a N30.01 ; Nausea R11.0 and BMI 40.0-44.9, adult Z68.41 [facility] [address] [address] Jan, BMI 40.0-44.9, adult Z68.41 and Acute strain of neck muscle, initial encounter S16.1XXA [facility] [place] [address] [place] [address] 14 Mar, 17 Fibromyalgia M79.7 [facility] [address] [place] [address] 08 Mar, 17 Acute left- sided low back pain without sciatica M54.5 [facility] [address] [place] [address] 29 Mar, 17 Fibromyalgia M79.7 [facility] [address] [place] [address] 06 Mar, 17 Fibromyalgia M79.7 [facility] [address] [address] 14 Dec, 17 Ganglion of left wrist M67.432 and Fibromyalgia M79.7 [facility] [address] [address] 02 Nov, 17 Fibromyalgia M79.7 [facility] [address] [address] 15 Sep, 17 Polyarticular arthritis M13.0 ; Fibromyalgia M79.7 ; Irritable bowel syndrome with constipation K58.1 and Primary osteoarthritis of both knees M17.0 [facility] [address] [place] [address] Sep, 17 Fibromyalgia M79.[address] [address] August, 17 Fatigue, unspecified type R53.[address] [address] August, 17 Fibromyalgia M79.7 [facility] [address] [address] Jun, 17 Polyarticular arthritis M13.0 ; Fibromyalgia M79.7 and Irritable bowel syndrome with constipation K58.1 [facility] [address] [place] [address] Jun, 17 Polyarticular arthritis M13.0 [facility] [address] [place] [address] May, 17 Polyarticular arthritis M13.0 [facility] [address] [address] Jan, 16 Arthralgia, unspecified joint M25.50 and Iron deficiency anemia, unspecified iron deficiency anemia type D50.9 [facility] [address] [place] [address] Nov, 16 Myalgia M79.1 and Iron deficiency anemia, unspecified iron deficiency anemia type D50.9 [facility] [address] [place] [address] Oct, 16 Pain in left wrist M25.532 ; Pain in right wrist M25.531 ; Iron deficiency anemia, unspecified iron deficiency anemia type D50.9 and Constipation, unspecified constipation type K59.00 [facility] [address] [place] [address] Oct, [address] [address] Oct, 16 Pain in right wrist M25.531 ; Pain in left wrist M25.532 and Elevated blood pressure I10 [facility] [address] [facility] [id number] [address] [place] [address] Jul, [facility] [address] [id number] [address] [place] [address] Jul, [facility] [address] [facility] [id number] [address] [place] [address] August, [facility] [address] [facility] [id number] [address] [place] [address] August, [facility] [address] [facility] [id number] [address] [place] [address] Jul, [facility] [address] [id number] [address] [place] [address] Jul, [facility] [address] [place] [address] Mar, 13 [facility] [address] [facility] [id number] [address] [place] [address] Mar, [facility] [address] [facility] [id number] [address] [place] [address] Jan, [facility] [address] [facility] [id number] [address] [place] [address] Jan, [facility] [address] [facility] [id number] [address] [place] [address] Jan, IMMUNIZATIONS No Known Immunizations SOCIAL HISTORY Never Assessed [place]ON FOR V[place]IT [place] [place] VITAL SIGNS MEDICATIONS No [...]
--- OUTSIDE RECORDS SUMMARY | 2019-11-18 19:39 | XMS REPORT ---
Author Juan Stubbs [facility] Address [address] [place], [place] [id number] Care Team Providers Care Hat Blocker Name Role Phone Bhaskar Cobos PCP Allergies and Adverse Reactions Name Reaction Notes Tylenol-Codeine #3 Plan of Treatment Not available. Medications Active Name Start Date Estimated Completion Date SIG Co mments gabapentin 800 mg oral tablet ta ke 1 tablet (800 mg) by oral route 3 times per day alprazolam 0.25 mg oral tablet t jess 1 tablet by oral route 2 times a day as needed levothyroxine 25 mcg oral tablet take 1 tablet (25 mcg) by oral route once daily lisinopril-hydrochlorothiazide 10-12.5 mg oral tablet take 1 tablet by oral route once daily bupropion HCl 100 mg oral tablet take 1 tablet (100 mg) by oral route 2 times per day amitriptyline 75 mg oral tablet take 1 tablet (75 mg) by oral route once daily at bedtime tramadol 50 mg oral tablet take 1 tablet (50 mg) by oral route every 6 hours as needed diclofenac sodium 75 mg oral tablet,delayed release (DR/EC) take 1 tablet (75 mg) by oral route 2 times per day Name Start Date Expiration Date SIG Comments Ventolin HFA 90 mcg/actuation inhalation HFA aerosol inhaler inhale 2 puffs (180 mcg) by inhalation route every 6 hours as needed Vitamin C 500 mg oral tablet,chewable arianne w 1 tablet by oral route daily Problem List Description Status Onset Abdominal mass Active 11/14/2018 Vital Signs Date Time BP-Sys(mm[Hg] BP-Dyana(mm[Hg]) HR(bpm) RR(rpm) Temp WT HT HC BMI BSA BMI Percentile O2 Sat(%) 11/14/2018 2:32:00 PM 121 mmHg 71 mmHg 72 bpm 20 rpm 96.7 F 239 lbs 64 in 41.0238 kg/m 2.2125 m Social History Name Description Comments Tobacco Never smoker Alcohol Use - Occasional History of Procedures Not available. Results Summary Not available. History Of Immunizations Not available. History of Past Illness Name Date of Onset Comments Depression Aneurysm between chamber of h eart Hypothyroidism Abdominal mass 11/14/2018 Abdominal mass Nov 14 2018 2:37PM Payers Insurance Name Company Name Plan Name Plan Number Policy Number Adin cy Group Number Start Date [facility] [id number] N/A History of Encounters Visit Date Visit Type Provider 11/14/2018 Office visit Bhaskar Cobos DO
--- OUTSIDE RECORDS SUMMARY | 2019-11-18 19:39 | XMS REPORT ---
Author Author Juan Ansari Doctor Organization [facility] Address Unknown Phone Unavailable Care Team Providers Care Pest Control Applicator Name Role Phone Migration, Doctor Unavailable Unavailable PROBLEMS Type Condition ICD9-CM Code [id number] Code Onset Dates Condition S tatus SNOMED Code Problem Iron deficiency anemia, unspecified iron deficiency an emia type D50.9 Active 73261693 Problem Constipation, unspecified constipation type K59.00 Active 81359949 Problem Constipation, unspecified constipation type K59.00 Active 89141541 Problem Polyarticular arthritis M13.0 Active 25740123 Problem Fibromyalgia M79.7 Active 6163576 05 Problem Primary osteoarthritis of both knees M17.0 Active 993932004 Problem Migraine without status migr ainosus, not intractable, unspecified migraine type G43.909 Active 22801699 ALLERGIES No Information ENCOUNTERS Encounter Location Date Diagnosis [facility] [address] [place] [address] Oct, Constipation, unspecified co nstipation type K59.00 and Right upper quadrant abdominal pain R10.11 [facility] WALK IN [facility] [address] [address] Sep, Cellulitis of leg L03.119 [facility] W[facility] IN [facility] [address] [place] [address] Sep, Poison shruti dermatitis L23.7 [facility] IN [facility] [address] [place] [address] Jul, Migraine G43.909 ; Right low back pain M54.5 and Numbness of fingers R20.0 [facility] IN [facility] [address] [place] [address] Jun, Tonsillitis J03.90 and Sore throat J02.9 [facility] [address] [facility] [id number] [place] [address] Mar, [facility] [address] [facility] [id number] [place] [address] Mar, [facility] [address] [facility] [id number] [address] [place] [address] Mar, Acute cystitis with hematuri a N30.01 ; Nausea R11.0 and BMI 40.0-44.9, adult Z68.41 [facility] [address] [facility] [id number] [address] [address] Jan, BMI 40.0-44.9, adult Z68.41 and Acute strain of neck muscle, initial encounter S16.1XXA [facility] [address] [address] 14 Mar, 17 Fibromyalgia M79.7 [facility] [address] [address] 08 Mar, 17 Acute left- sided low back pain without sciatica M54.5 [facility] [place] [address] [place] [address] Mar, 17 Fibromyalgia M79.7 [facility] [address] [address] Mar, 17 Fibromyalgia M79.7 [facility] [address] [address] 14 Dec, 17 Ganglion of left wrist M67.432 and Fibromyalgia M79.7 [facility] [place] [address] [place] [address] Nov, 17 Fibromyalgia M79.7 [facility] [address] [place] [address] 15 Sep, 17 Polyarticular arthritis M13.0 ; Fibromyalgia M79.7 ; Irritable bowel syndrome with constipation K58.1 and Primary osteoarthritis of both knees M17.[address] [address] [address] Sep, 17 Fibromyalgia M79.7 [facility] [address] [place] [address] August, 17 Fatigue, unspecified type R53.83 [facility] [address] [place] [address] August, 17 Fibromyalgia M79.[address] [address] Jun, 17 Polyarticular arthritis M13.0 ; Fibromyalgia M79.7 and Irritable bowel syndrome with constipation K58.1 [facility] [address] [place] [address] Jun, 17 Polyarticular arthritis M13.[address] [address] May, 17 Polyarticular arthritis M13.[address] [address] Jan, 16 Arthralgia, unspecified joint M25.50 and Iron deficiency anemia, unspecified iron deficiency anemia type D50.9 [facility] [address] [place] [address] Nov, 16 Myalgia M79.1 and Iron deficiency anemia, unspecified iron deficiency anemia type D50.[address] [address] Oct, 16 Pain in left wrist M25.532 ; Pain in right wrist M25.531 ; Iron deficiency anemia, unspecified iron deficiency anemia type D50.9 and Constipation, unspecified constipation type K59.[address] [address] Oct, [address] [address] Oct, 16 Pain in right wrist M25.531 ; Pain in left wrist M25.532 and Elevated blood pressure I10 [place] [id number] [place] [address] Jul, [place] [id number] [place] [address] Jul, [id number] [place] [address] August, [facility] [address] [id number] [place] [address] August, [facility] [id number] [place] [address] Jul, [facility] [id number] [place] [address] Jul, [facility] [address] [place] [address] Mar, [facility] [address] [id number] [place] [address] Mar, [facility] [id number] [place] [address] Jan, [facility] [id number] [place] [address] Jan, [facility] [id number] [place] [address] Jan, IMMUNIZATIONS No Known Immunizations SOCIAL HISTORY Never Assessed REASON FOR VISIT PLAN OF CARE VITAL SIGNS Blood pressure systolic 120 mmHg 2013-08-30 Blood pressure diastolic 78 mmHg 2013-08-30 MEDICATIONS No Known Medications RESULTS No Results [...]
--- OUTSIDE RECORDS SUMMARY | 2019-11-18 19:39 | XMS REPORT ---
Author Author Juan CHO Organization [facility] Address [address] [place] [address] Care Team Providers Care Mail Clerks Supervisor Name Role Phone TUCKER CHO Unavailable PROBLEMS Type Condition ICD9-CM Code CLI92-FA Code Onset Dates Condition S tatus SNOMED Code Problem Primary osteoarthritis of both knees M17.0 Active 954291166 Problem Fibromyalgia M79.7 Active 3680283 05 Problem Unspecified hemorrhoids without mention of complication 45 5.6 Active 98334406 Problem Polyarticular arthritis M13.0 Active 73952036 Problem Iron deficiency anemia, unspecified iron deficiency an emia type D50.9 Active 68122349 ALLERGIES No Information ENCOUNTERS Encounter Location Date Diagnosis [facility] [address] [address] Mar, [facility] [address] [place] [address] Mar, [facility] [address] [place] [address] Mar, Acute cystitis with hematuri a N30.01 ; Nausea R11.0 and BMI 40.0-44.9, adult Z68.41 [facility] [address] [address] Jan, BMI 40.0-44.9, adult Z68.41 and Acute strain of neck muscle, initial encounter S16.1XXA [facility] [place] [address] [place] [address] 14 Mar, 17 Fibromyalgia M79.7 [facility] [place] [address] [place] [address] 08 Mar, 17 Acute left- sided low back pain without sciatica M54.5 [facility] [place] [address] [place] [address] 29 Mar, 17 Fibromyalgia M79.7 [facility] [address] [address] Mar, 17 Fibromyalgia M79.[address] [address] 14 Dec, 17 Ganglion of left wrist M67.432 and Fibromyalgia M79.[address] [address] Nov, 17 Fibromyalgia M79.[address] [address] 15 Sep, 17 Polyarticular arthritis M13.0 ; Fibromyalgia M79.7 ; Irritable bowel syndrome with constipation K58.1 and Primary osteoarthritis of both knees M17.0 [facility] [address] [address] Sep, 17 Fibromyalgia M79.[address] [address] August, 17 Fatigue, unspecified type R53.[address] [address] August, 17 Fibromyalgia M79.[address] [address] Jun, 17 Polyarticular arthritis M13.0 ; Fibromyalgia M79.7 and Irritable bowel syndrome with constipation K58.[address] [address] Jun, 17 Polyarticular arthritis M13.0 [facility] [address] [address] May, 17 Polyarticular arthritis M13.[address] [address] Jan, 16 Arthralgia, unspecified joint M25.50 and Iron deficiency anemia, unspecified iron deficiency anemia type D50.[address] [address] Nov, 16 Myalgia M79.1 and Iron deficiency anemia, unspecified iron deficiency anemia type D50.9 [facility] [address] [place] [address] Oct, 16 Pain in left wrist M25.532 ; Pain in right wrist M25.531 ; Iron deficiency anemia, unspecified iron deficiency anemia type D50.9 and Constipation, unspecified constipation type K59.00 [facility] [address] [place] [address] Oct, [address] [address] Oct, 16 Pain in right wrist M25.531 ; Pain in left wrist M25.532 and Elevated blood pressure I10 [facility] [address] [id number] [address] [place] [address] Jul, [facility] [address] [id number] [address] [place] [address] Jul, [facility] [address] [id number] [address] [place] [address] August, [facility] [address] [id number] [address] [place] [address] August, [facility] [address] [facility] [id number] [address] [place] [address] Jul, [facility] [address] [facility] [id number] [address] [place] [address] Jul, [facility] [place] [address] Mar, 13 [facility] [address] [id number] [address] [place] [address] Mar, [facility] [address] [facility] [id number] [address] [place] [address] Jan, [facility] [address] [id number] [address] [place] [address] Jan, [facility] [address] [facility] [id number] [address] [place] [address] 12 Jan, 2012 IMMUNIZATIONS No Known Immunizations SOCIAL HISTORY Never Assessed REASON FOR VISIT PLAN OF CARE VITAL SIGNS MEDICATIONS Unknown [...]
--- OUTSIDE RECORDS SUMMARY | 2019-11-18 19:39 | XMS REPORT ---
Author Juan Stubbs [facility] Address [address] [place], [place] [address] Care Team Providers Care Buckle Attacher Name Role Phone Bhaskar Cobos PCP Allergies [...] Number Adin cy Group Number Start Date [facility] [phone] N/A History of Encounters Visit Date Visit Type Provider 11/14/2018 Office visit Bhaskar Cobos DO
--- OUTSIDE RECORDS SUMMARY | 2019-11-18 19:40 | XMS REPORT ---
Author Author Juan MURPHY Organization [employer] Address Unknown Phone Unavailable Care Team Providers Care Supervisor Corduroy Cutting Name Role Phone NIESHA MURPHY CP Unavailable Allergies No Known Allergies Problems Problem Type Condition Code Onset Dates Condition Statu s Problem Unspecified hemorrhoids without mention of complicatio n 455.6 Active Problem Diarrhea 787.91 Active Problem Dental examination V72.2 Active Problem Intestinal infection due to other organism, NEC 008.8 Active Problem Abdominal pain, right lower quadrant 789.03 Active Medications No Known Medications Results No Known Results Summary Purpose [employer]Clinical[employer] Submission
--- OUTSIDE RECORDS SUMMARY | 2019-11-18 19:40 | XMS REPORT ---
Author Author Juan ROCHA Organization [facility] [place] Address [address] [place] [address] Care Team Providers Care Founder Chairman And Chief Creative Officer Name Role Phone JUAN ALBERTOMAHESH SEGOVIA Unavailable PROBLEMS Type Condition ICD9-CM Code [id number] Code Onset Dates Condition S tatus SNOMED Code Problem Primary osteoarthritis of both knees M17.0 Active 482767255 Problem Fibromyalgia M79.7 Active 7541730 05 Problem Unspecified hemorrhoids without mention of complication 45 5.6 Active 79155915 Problem Polyarticular arthritis M13.0 Active 68064724 Problem Iron deficiency anemia, unspecified iron deficiency an emia type D50.9 Active 23583832 ALLERGIES No Information ENCOUNTERS Encounter Location Date Diagnosis [facility] [place] [address] [facility] C [id number] [place], [place] [address] 7640[address] Mar, Fibromyalgia M79.7 [facility] [place] [address] [place] [address] C [id number] [place], [place] [address] 1680[address] Mar, Acute left-sided low back pain without sciatica M54.5 [facility] [place] [address] [place] [address] C [id number] [place], [place] [address] 864770 Mar, Fibromyalgia M79.7 [facility] [place] [address] [place] [address] C [id number] [place], [place] [address] 665220 Mar, Fibromyalgia M79.7 [facility] [place] [address] [place] [address] C [id number] [place], [place] [address] 810668 14 Dec, 2016 Ganglion of left wrist M67.432 and Fibromyalgia M79.7 [facility] [place] [address] [facility] C [id number] [place], [place] [address] 264675 Nov, Fibromyalgia M79.7 [facility] [place] [address] [place] [address] C [id number] [place], [place] [address] 445776 15 Sep, 2016 Polyarticular arthritis M13.0 ; Fibromyalgia M79.7 ; Irritable bowel syndrome with constipation K58.1 and Primary osteoarthritis of both knees M17.0 [facility] [place] [address] [facility] [address] [id number] [place], [place] [address] 4717[address] Sep, Fibromyalgia M79.7 [facility] [place] [address] [facility] C [id number] [place], [place] [address] 030514 August, Fatigue, unspecified type R53.83 [facility] [place] [address] [facility] C [id number] [place], [place] [address] 060749 August, Fibromyalgia M79.7 [facility] [place] [address] [place] [address] C [id number] [place], [place] [address] 196886 Jun, Polyarticular arthritis M13.0 ; Fibromyalgia M79.7 and Irritable bowel syndrome with constipation K58.1 [facility] [place] [address] [facility] [address] [id number] [place], [place] [address] 171138 Jun, Polyarticular arthritis M13.0 [facility] [place] [address] [facility] C [id number] [place], [place] [address] 406650 May, Polyarticular arthritis M13.0 [facility] [place] [address] [place] [address] C [id number] [place], [place] [address] 635685 Jan, Arthralgia, unspecified joint M25.50 and Iron deficiency anemia, unspecified iron deficiency anemia type D50.9 [facility] [place] [address] [facility] C [id number] [place], [place] [address] 721852 Nov, Myalgia M79.1 and Iron deficiency anemia, unspecified iron deficiency anemia type D50.9 [facility] [place] [address] [place] [address] C [id number] [place], [place] [address] 518410 Oct, Pain in left wrist M25.532 ; Pain in right wrist M25.531 ; Iron deficiency anemia, unspecified iron deficiency anemia type D50.9 and Constipation, unspecified constipation type K59.00 [facility] [place] [address] [facility] [address] [id number] [place], [place] [address] 518669 Oct, [facility] [place] [address] [place] [address] C [id number] [place], [place] [address] 966553 Oct, Pain in right wrist M25.531 ; Pain in left wrist M25.532 and Elevated blood pressure I10 [facility] [address] [id number] [address] [place] [phone] Jul, [facility] [address] [id number] [address] [place] [phone] Jul, [facility] [address] [id number] [address] [place] [phone] August, [facility] [address] [id number] [address] [place] [phone] August, [facility] [address] [id number] [address] [place] [phone] Jul, [facility] [address] [id number] [address] [place] [phone] Jul, [facility] [address] [facility] C [id number] [place], [place] [address] 983011 Mar, [facility] [address] [id number] [address] [place] [phone] Mar, [facility] [address] [id number] [address] [place] [phone] Jan, [facility] [address] [id number] [address] [place] [phone] Jan, [facility] [address] [facility] [id number] [address] [place] [phone] Jan, IMMUNIZATIONS No Known Immunizations SOCIAL HISTORY Never Assessed REASON FOR VISIT Repository Refill Requests PLAN OF CARE VITAL SIGNS MEDICATIONS Medication Instructions Dosage Frequency Start Date End Date Duration S tatus Cymbalta 20 mg Orally Once a day 1 capsule 24h 14 Dec, 2016 30 day(s) Active Neurontin 800 MG Orally 2 times a day 1 tablet 12h 15 Sep, 2016 30 day(s) Active RESULTS No Results PROCEDURES No Known procedures INSTRUCTIONS MEDICATIONS ADMINISTERED No Known Medications MEDICAL (GENERAL) HISTORY Type Description Date Medical History depression Medical History alopecia totalis Medical History preeclampsia Surgical History wisdom teeth extraction Surgical History cholecystectomy Surgical History right knee arthroscopy Surgical History section Surgical History dilatation and curettage Surgical History tubal ligation Hospitalization History Surgery(s)/Childbirth(s) only
--- OUTSIDE RECORDS SUMMARY | 2019-11-18 19:40 | XMS REPORT ---
Author Author Juan MURPHY Organization [employer] Address Unknown Phone Unavailable Care Team Providers Care Meteorological Technician Name Role Phone NIESHA MURPHY CP Unavailable Allergies, Adverse Reactions, Alerts Substance Reaction Event Type Codeine Phosphate Info Not Available Drug Allergy Plastic Tape Info Not Available Non Drug Allergy Problems Problem Type Condition Code Onset Dates Condition Statu s Problem Unspecified hemorrhoids without mention of complicatio n 455.6 Active Problem Diarrhea 787.91 Active Problem Dental examination V72.2 Active Assessment Myalgia M79.1 Active Assessment Iron deficiency anemia, unspecified iron deficiency anemia type D50.9 Active Problem Intestinal infection due to other organism, NEC 008.8 Active Problem Abdominal pain, right lower quadrant 789.03 Active Medications Medication Code System Code Instructions Start Date End Date Status Dosage Ferrous Sulfate [facility] [address]-44 325 (65 Fe) MG Orally tw ice a day November 24, 2015 1 tablet Senna [facility] [address]803-[address]28 187 MG Orally Once a day 2 tablets at bedtime as needed Vitamin C [facility] [address]-60 500 MG Orally Once a day 1 tablet Procedures Procedure Coding System Code Date Office Visit, Est Pt., Level 3 CPT-4 35957 A 2015 Vital Signs Date/Time: Dec 08, 2015 Cardiac Monitoring Heart Rate 64 bpm Weight 254 lbs Height 65 in BMI 42.26 Index Blood Pressure Diastolic 76 mmHg Blood Pressure Systolic 114 mmHg Results No Known Results Summary Purpose eClinicalWorks Submission
--- OUTSIDE RECORDS SUMMARY | 2019-11-18 19:40 | XMS REPORT ---
Author Author Juan MCHUGH Organization [facility] Address [address] [place] [address] Phone Unavailable Care Team Providers Care Cement Truck Loader Name Role Phone JOSEFA MCHUGH Unavailable Unavailable PROBLEMS Type Condition ICD9-CM Code UQU97-FU Code Onset Dates Condition S tatus SNOMED Code Problem Primary osteoarthritis of both knees M17.0 Active 010444989 Problem Fibromyalgia M79.7 Active 20291218 05 Problem Unspecified hemorrhoids without mention of complication 45 5.6 Active 49887146 Problem Polyarticular arthritis M13.0 Active 51414990 Problem Iron deficiency anemia, unspecified iron deficiency an emia type D50.9 Active 77100961 ALLERGIES Substance Reaction Event Type Date Status Codeine Phosphate Unknown Drug Allergy Jan, Active Plastic Tape Unknown Non Drug Allergy Jan, Active ENCOUNTERS Encounter Location Date Diagnosis [facility] [address] [facility] [id number] [address] [place] [address] Jan, BMI 40.0-44.9, adult Z68.41 and Acute strain of neck muscle, initial encounter S16.1[facility]A [facility] [place] [address] [place] [phone] 14 Mar, 17 Fibromyalgia M79.7 [facility] [place] [address] [place] [address] 08 Mar, 17 Acute left- sided low back pain without sciatica M54.5 [facility] [place] [address] [place] [address] Mar, 17 Fibromyalgia M79.7 [facility] [place] [address] [place] [phone] Mar, 17 Fibromyalgia M79.7 [facility] [place] [address] [place] [address] 14 Dec, 17 Ganglion of left wrist M67.432 and Fibromyalgia M79.7 [facility] [place] [address] [place] [address], [place] [address] Nov, 17 Fibromyalgia M[address] [address] Sep, 17 Polyarticular arthritis M13.0 ; Fibromyalgia M79.7 ; Irritable bowel syndrome with constipation K58.1 and Primary osteoarthritis of both knees M17.[address] [address] Sep, 17 Fibromyalgia M79.[address] [address] August, 17 Fatigue, unspecified type R53.[address] [address] August, 17 Fibromyalgia M79.[address] [address] Jun, 17 Polyarticular arthritis M13.0 ; Fibromyalgia M79.7 and Irritable bowel syndrome with constipation K58.[address] [address] Jun, 17 Polyarticular arthritis M13.[address] [address] May, 17 Polyarticular arthritis M13.[address] [address] Jan, 16 Arthralgia, unspecified joint M25.50 and Iron deficiency anemia, unspecified iron deficiency anemia type D50.[address] [address] Nov, 16 Myalgia M79.1 and Iron deficiency anemia, unspecified iron deficiency anemia type D50.[address] [address] Oct, 16 Pain in left wrist M25.532 ; Pain in right wrist M25.531 ; Iron deficiency anemia, unspecified iron deficiency anemia type D50.9 and Constipation, unspecified constipation type K59.[address] [address] Oct, 16 Margi DUNNA [address] [place] [address] Oct, 16 Pain in right wrist M25.531 ; Pain in left wrist M25.532 and Elevated blood pressure I10 [facility] [address] [facility] [id number] [address] [place] [phone] Jul, [facility] [address] [facility] [id number] [address] [place] [phone] Jul, [facility] [address] [facility] [id number] [address] [place] [phone] August, [facility] [address] [facility] [id number] [address] [place] [phone] August, [facility] [address] [facility] [id number] [address] [place] [phone] Jul, [facility] [address] [facility] [id number] [address] [place] [phone] Jul, Margi DUNNA [address] [place] [address] Mar, 13 [facility] [address] [facility] [id number] [address] [place] [phone] Mar, [facility] [address] [facility] [id number] [address] [place] [phone] Jan, [facility] [address] [facility] [id number] [address] [place] [phone] Jan, [facility] [address] [facility] [id number] [address] [place] [phone] Jan, IMMUNIZATIONS No Known Immunizations SOCIAL HISTORY Never Assessed REASON FOR VISIT Sore neck on the right side. The patient has had a cold and cough and now her n amisha is sore.--PRANAV Le PLAN OF CARE Activity Details Follow Up prn Reason: VITAL SIGNS Height 65 in 2018-02-01 Weight 264.4 lbs 2018-02-01 Temperature 97.1 degrees Fahrenheit 2018-02-01 Heart Rate 96 bpm 2018-02-01 Respiratory Rate 18 2018-02-01 BMI 43.99 kg/m2 2018-02-01 Blood pressure systolic 104 mmHg 2018-02-01 Blood pressure diastolic 64 mmHg 2018-02-01 MEDICATIONS Medication Instructions Dosage Frequency Start Date End Date Duration S tatus Amitriptyline HCl 50 mg Orally Once a day at bedtime 1 tablet 30 day(s) Active Levothyroxine Sodium 50 MCG Orally Once a day 1 tablet on an empty stomach in the morning 24h 30 day(s) Active Lisinopril-Hydrochlorothiazide 20-25 MG Orally Once a day 1 tablet 24 h 30 day(s) Active Duloxetine HCl 20 mg Orally Once a day 1 capsule 24h Mar, 30 day(s) Active Lyrica 75 MG Orally twice a day 1 capsule 12h Mar, 1 4 days Not-Taking Meloxicam 10 MG Orally Once a day 1 capsule 24h Not-Taking Ferrous Sulfate 325 (65 Fe) MG Orally twice a day 1 tablet 12h 2015 Not-Taking Gabapentin 800 MG Orally Three times a day 1 tablet 8h Active Diclofenac Sodium 75 MG Orally Twice a day 1 tablet with food or milk 12h 30 day(s) Active Vitamin C 500 MG Orally Once a day 1 tablet 24h Not-Taking RESULTS No Results PROCEDURES No Known procedures [...]
--- OUTSIDE RECORDS SUMMARY | 2019-11-18 19:40 | XMS REPORT ---
Author Author Juan ROCHA Organization [facility] [place] Address [address] [place] [address] Care Team Providers Care Social Contact Worker Name Role Phone JUAN ALBERTOMAHESH SEGOVIA Unavailable PROBLEMS Type Condition ICD9-CM Code DZP15-OW Code Onset Dates Condition S tatus SNOMED Code Problem Primary osteoarthritis of both knees M17.0 Active 302204044 Problem Fibromyalgia M79.7 Active 1078631 05 Problem Unspecified hemorrhoids without mention of complication 45 5.6 Active 76021347 Problem Polyarticular arthritis M13.0 Active 88394278 Problem Iron deficiency anemia, unspecified iron deficiency an emia type D50.9 Active 85621077 ALLERGIES No Information ENCOUNTERS Encounter Location Date Diagnosis [facility] [place] [address] [facility] [id number] [place], [place] [address] 015786 Mar, Fibromyalgia M79.7 [facility] [place] [address] [place] [address] C [id number] [place], [place] [address] 274692 Mar, Acute left-sided low back pain without sciatica M54.5 [facility] [place] [address] [place] [address] C [id number] [place], [place] [address] 468272 Mar, Fibromyalgia M79.7 [facility] [place] [address] [place] [address] C [id number] [place], [place] [address] 046118 Mar, Fibromyalgia M79.7 [facility] [place] [address] [place] [address] C [id number] [place], [place] [address] 629469 14 Dec, 2016 Ganglion of left wrist M67.432 and Fibromyalgia M79.7 [facility] [place] [address] [facility] C [id number] [place], [place] [address] 581276 Nov, Fibromyalgia M79.7 [facility] [place] [address] [place] [address] C [id number] [place], [place] [address] 053714 15 Sep, 2016 Polyarticular arthritis M13.0 ; Fibromyalgia M79.7 ; Irritable bowel syndrome with constipation K58.1 and Primary osteoarthritis of both knees M17.0 [facility] [place] [address] [facility] [address] [id number] [place], [place] [address] 0048[address] Sep, Fibromyalgia M79.7 [facility] [place] [address] [facility] [address] [id number] [place], [place] [address] 444546 August, Fatigue, unspecified type R53.83 [facility] [place] [address] [facility] [address] [id number] [place], [place] [address] 015872 August, Fibromyalgia M79.7 [facility] [place] [address] [place] [address] C [id number] [place], [place] [address] 881890 Jun, Polyarticular arthritis M13.0 ; Fibromyalgia M79.7 and Irritable bowel syndrome with constipation K58.1 [facility] [place] [address] [facility] [address] [id number] [place], [place] [address] 358517 Jun, Polyarticular arthritis M13.0 [facility] [place] [address] [facility] [address] [id number] [place], [place] [address] 346286 May, Polyarticular arthritis M13.0 [facility] [place] [address] [place] [address] C [id number] [place], [place] [address] 165922 Jan, Arthralgia, unspecified joint M25.50 and Iron deficiency anemia, unspecified iron deficiency anemia type D50.9 [facility] [place] [address] [facility] C [id number] [place], [place] [address] 789542 Nov, Myalgia M79.1 and Iron deficiency anemia, unspecified iron deficiency anemia type D50.9 [facility] [place] [address] [place] [address] C [id number] [place], [place] [address] 911615 Oct, Pain in left wrist M25.532 ; Pain in right wrist M25.531 ; Iron deficiency anemia, unspecified iron deficiency anemia type D50.9 and Constipation, unspecified constipation type K59.00 [facility] [place] [address] [facility] [address] [id number] [place], [place] [address] 812430 Oct, [facility] [place] [address] [place] [address] C [id number] [place], [place] [address] 907471 Oct, Pain in right wrist M25.531 ; Pain in left wrist M25.532 and Elevated blood pressure I10 [facility] [address] [id number] [address] [place] [address] 14 Jul, 2014 [facility] [address] [id number] [address] [place] [phone] Jul, [facility] [address] [id number] [address] [place] [phone] August, [facility] [address] [id number] [address] [place] [phone] August, [facility] [address] [id number] [address] [place] [phone] Jul, [facility] [address] [id number] [address] [place] [phone] Jul, [facility] [address] [facility] [address] [id number] [place], [place] [address] 1540[address] Mar, [facility] [address] [id number] [address] [place] [phone] Mar, [facility] [address] [id number] [address] [place] [phone] Jan, [facility] [address] [id number] [address] [place] [phone] Jan, [facility] [address] [id number] [address] [place] [phone] Jan, IMMUNIZATIONS No Known Immunizations SOCIAL HISTORY Never Assessed REASON FOR VISIT PLAN OF CARE VITAL SIGNS MEDICATIONS Medication Instructions Dosage Frequency Start Date End Date Duration S tatus Lyrica 75 MG Orally twice a day 1 capsule 12h 15 Mar, 2017 1 4 days Active RESULTS No Results PROCEDURES No Known [...]
--- OUTSIDE RECORDS SUMMARY | 2019-11-18 19:40 | XMS REPORT ---
Author Author Juan ROCHA Organization [facility] [place] Address [address] [place] [address] Care Team Providers Care Product Development Chemist Name Role Phone MAHESH ROCHA Unavailable PROBLEMS Type Condition ICD9-CM Code [id number] Code Onset Dates Condition S tatus SNOMED Code Problem Primary osteoarthritis of both knees M17.0 Active 906395278 Problem Fibromyalgia M79.7 Active 1897583 05 Problem Unspecified hemorrhoids without mention of complication 45 5.6 Active 57972339 Problem Polyarticular arthritis M13.0 Active 93179756 Problem Iron deficiency anemia, unspecified iron deficiency an emia type D50.9 Active 77812029 ALLERGIES Substance Reaction Event Type Date Status Codeine Phosphate Unknown Drug Allergy Dec, Active Plastic Tape Unknown Non Drug Allergy Dec, Active ENCOUNTERS Encounter Location Date Diagnosis [facility] [place] [address] [facility] [address] [id number] [place] [address] 497698 Mar, Fibromyalgia M79.7 [facility] [place] [address] [facility] [address] [id number] [place] [address] 183983 Mar, Acute left-sided low back pain without sciatica M54.5 [facility] [place] [address] [facility] [address] [id number] [place] [address] 811020 Mar, Fibromyalgia M79.7 [facility] [place] [address] [facility] [address] [id number] [place] [address] 839740 Mar, Fibromyalgia M79.7 [facility] [place] [address] [facility] [address] [id number] [place] [address] 055954 Dec, Ganglion of left wrist M67.432 and Fibromyalgia M79.7 [facility] [place] [address] [facility] [address] [id number] [place] [address] 780126 Nov, Fibromyalgia M79.7 [facility] [place] [address] [facility] [address] [id number] [place], [place] [address] 317940 Sep, Polyarticular arthritis M13.0 ; Fibromyalgia M79.7 ; Irritable bowel syndrome with constipation K58.1 and Primary osteoarthritis of both knees M17.0 [facility] [place] [address] [facility] [address] [id number] [place] [address] 624631 Sep, Fibromyalgia M79.7 [facility] [place] [address] [place] [address] [address] [id number] [place], [place] [address] 419014 August, Fatigue, unspecified type R53.83 [facility] [place] [address] [place] [address] [address] [id number] [place] [address] 789526 August, Fibromyalgia M79.7 [facility] [place] [address] [place] [address] [address] [id number] [place] [address] 078595 Jun, Polyarticular arthritis M13.0 ; Fibromyalgia M79.7 and Irritable bowel syndrome with constipation K58.1 [facility] [place] [address] [place] [address] [address] [id number] [place] [address] 139105 Jun, Polyarticular arthritis M13.0 [facility] [place] [address] [place] [address] [address] [id number] [place] [address] 203610 May, Polyarticular arthritis M13.0 [facility] [place] [address] [place] [address] [address] [id number] [place] [address] 692391 Jan, Arthralgia, unspecified joint M25.50 and Iron deficiency anemia, unspecified iron deficiency anemia type D50.9 [facility] [place] [address] [facility] [address] [id number] [place] [address] 487228 Nov, Myalgia M79.1 and Iron deficiency anemia, unspecified iron deficiency anemia type D50.9 [facility] [place] [address] [place] [address] [address] [id number] [place] [address] 472199 Oct, Pain in left wrist M25.532 ; Pain in right wrist M25.531 ; Iron deficiency anemia, unspecified iron deficiency anemia type D50.9 and Constipation, unspecified constipation type K59.00 [facility] [place] [address] [facility] [address] [id number] [place] [address] 615766 Oct, [facility] [place] [address] [place] [address] [address] [id number] [place] [address] 825655 Oct, Pain in right wrist M25.531 ; Pain in left wrist M25.532 and Elevated blood pressure I10 [facility] [address] [id number] [address] [place] [phone] Jul, [facility] [address] [id number] [address] [place] [phone] Jul, [facility] [address] [id number] [address] [place] [phone] August, [facility] [address] [id number] [address] [place] [phone] August, [facility] [address] [id number] [address] [place] [phone] Jul, [facility] [address] [id number] [address] [place] [phone] Jul, [facility] [address] [facility] [address] [id number] [place] [address] 612517 Mar, [facility] [address] [id number] [address] [place] [phone] Mar, [facility] [address] [id number] [address] [place] [phone] Jan, [facility] [address] [id number] [address] [place] [phone] Jan, [facility] [address] [id number] [address] [place] [phone] Jan, IMMUNIZATIONS No Known Immunizations SOCIAL HISTORY Never Assessed REASON FOR VISIT lump wrist left. Deni PLAN OF CARE Activity Details Follow Up prn Reason: VITAL SIGNS Height 65 in 2017-01-12 Weight 260.0 lbs 2017-01-12 Temperature 98.1 degrees Fahrenheit 2017-01-12 Heart Rate 80 bpm 2017-01-12 Respiratory Rate 16 2017-01-12 BMI 43.26 kg/m2 2017-01-12 Blood pressure systolic 132 mmHg 2017-01-12 Blood pressure diastolic 86 mmHg 2017-01-12 MEDICATIONS Medication Instructions Dosage Frequency Start Date End Date Duration S ghada Amitriptyline HCl 50 mg Orally Once a day at bedtime 1 tablet 30 day(s) Active Vitamin C 500 MG Orally Once a day 1 tablet 24h Active Meloxicam 10 MG Orally Once a day 1 capsule 24h Active Cymbalta 20 mg Orally Once a day 1 capsule 24h 14 Dec, 2016 30 day(s) Active Neurontin 800 MG Orally 2 times a day 1 tablet 12h 15 Sep, 2016 30 day(s) Active Ferrous Sulfate 325 (65 Fe) MG Orally twice a day 1 tablet 12h 26 2015 Active RESULTS No Results PROCEDURES Procedure Date Ordered Result Body Site X-RAY EXAM OF WRIST Jan 12, 2017 INSTRUCTIONS MEDICATIONS ADMINISTERED No Known Medications MEDICAL (GENERAL) HISTORY Type Description Date Medical History depression Medical History alopecia totalis Medical History preeclampsia Surgical History wisdom teeth extraction Surgical History cholecystectomy Surgical History right knee arthroscopy Surgical History section Surgical History dilatation and curettage Surgical History tubal ligation Hospitalization History Surgery(s)/Childbirth(s) only
--- OUTSIDE RECORDS SUMMARY | 2019-11-18 19:40 | XMS REPORT ---
Author Author Juan MURPHY Organization [employer] Address Unknown Phone Unavailable Care Team Providers Care Tunnel Drier Operator Name Role Phone NIESHA MURPHY CP Unavailable Allergies, Adverse Reactions, Alerts Substance Reaction Event Type Codeine Phosphate Info Not Available Drug Allergy Plastic Tape Info Not Available Non Drug Allergy Problems Problem Type Condition Code Onset Dates Condition Statu s Assessment Elevated blood pressure I10 Acti ve Problem Unspecified hemorrhoids without mention of complicatio n 455.6 Active Problem Diarrhea 787.91 Active Problem Dental examination V72.2 Active Assessment Pain in right wrist M25.531 Active Assessment Pain in left wrist M25.532 Active Problem Intestinal infection due to other organism, NEC 008.8 Active Problem Abdominal pain, right lower quadrant 789.03 Active Medications No Known Medications Procedures Procedure Coding System Code Date C-REACTIVE PROTEIN CPT-4 14603 November 17, 2015 COMPREHEN METABOLIC PANEL CPT-4 85596 October 292015 COMPLETE CBC W/AUTO DIFF WBC CPT-4 73065 Oct Office Visit, Est Pt., Level 3 CPT-4 64329 J joshua 2015 VENIPUNCT, ROUTINE* CPT-4 41655 November 16, 201 6 Vital Signs Date/Time: November 17, 2015 Cardiac Monitoring Heart Rate 80 bpm Weight 259 lbs Height 65 in Blood Pressure Diastolic 92 mmHg Blood Pressure Systolic 148 mmHg Results No Known Results Summary Purpose [employer] Submission
--- OUTSIDE RECORDS SUMMARY | 2019-11-18 19:40 | XMS REPORT ---
Author Author Juan ROCHA Organization [facility] [place] Address [address] [place] [address] Care Team Providers Care Credit Control Assistant Name Role Phone MAHESH ROCHA Unavailable PROBLEMS Type Condition ICD9-CM Code HEH54-TX Code Onset Dates Condition S tatus SNOMED Code Problem Primary osteoarthritis of both knees M17.0 Active 777299085 Problem Fibromyalgia M79.7 Active 5026601 05 Problem Unspecified hemorrhoids without mention of complication 45 5.6 Active 57205918 Problem Polyarticular arthritis M13.0 Active 77707305 Problem Iron deficiency anemia, unspecified iron deficiency an emia type D50.9 Active 94817463 ALLERGIES Substance Reaction Event Type Date Status Codeine Phosphate Unknown Drug Allergy Mar, Active Plastic Tape Unknown Non Drug Allergy Mar, Active ENCOUNTERS Encounter Location Date Diagnosis [facility] [place] [address] [facility] [address] [id number] [place] [address] [id number] Mar, Fibromyalgia M79.7 [facility] [place] [address] [facility] [address] [id number] [place] [address] 022857 Mar, Acute left-sided low back pain without sciatica M54.5 [facility] [place] [address] [facility] [address] [id number] [place] [address] 913475 Mar, Fibromyalgia M79.7 [facility] [place] [address] [facility] [address] [id number] [place] [address] 383165 Mar, Fibromyalgia M79.7 [facility] [place] [address] [facility] [address] [id number] [place] [address] 242371 Dec, Ganglion of left wrist M67.432 and Fibromyalgia M79.7 [facility] [place] [address] [facility] [address] [id number] [place] [address] 747972 Nov, Fibromyalgia M79.7 [facility] [place] [address] [facility] [address] [id number] [place], [place] [address] 145141 Sep, Polyarticular arthritis M13.0 ; Fibromyalgia M79.7 ; Irritable bowel syndrome with constipation K58.1 and Primary osteoarthritis of both knees M17.0 [facility] [place] [address] [facility] [address] [id number] [place] [address] 784686 Sep, Fibromyalgia M79.7 [facility] [place] [address] [place] [address] [address] [id number] [place] [address] 598656 August, Fatigue, unspecified type R53.83 [facility] [place] [address] [place] [address] [address] [id number] [place] [address] 133556 August, Fibromyalgia M79.7 [facility] [place] [address] [place] [address] [address] [id number] [place], [place] [address] 555360 Jun, Polyarticular arthritis M13.0 ; Fibromyalgia M79.7 and Irritable bowel syndrome with constipation K58.1 [facility] [place] [address] [place] [address] [address] [id number] [place] [address] 430536 Jun, Polyarticular arthritis M13.0 [facility] [place] [address] [place] [address] [address] [id number] [place] [address] 179808 May, Polyarticular arthritis M13.0 [facility] [place] [address] [place] [address] [address] [id number] [place] [address] 650604 Jan, Arthralgia, unspecified joint M25.50 and Iron deficiency anemia, unspecified iron deficiency anemia type D50.9 [facility] [place] [address] [facility] [address] [id number] [place] [address] 690463 Nov, Myalgia M79.1 and Iron deficiency anemia, unspecified iron deficiency anemia type D50.9 [facility] [place] [address] [place] [address] [address] [id number] [place] [address] 967033 Oct, Pain in left wrist M25.532 ; Pain in right wrist M25.531 ; Iron deficiency anemia, unspecified iron deficiency anemia type D50.9 and Constipation, unspecified constipation type K59.00 [facility] [place] [address] [facility] [address] [id number] [place], [place] [address] 801473 Oct, [facility] [place] [address] [place] [address] [address] [id number] [place] [address] 286145 Oct, Pain in right wrist M25.531 ; Pain in left wrist M25.532 and Elevated blood pressure I10 [facility] [address] [id number] [address] [place] [phone] 14 Jul, 2014 [facility] [address] [id number] [address] [place] [phone] Jul, [facility] [address] [id number] [address] [place] [phone] August, [facility] [address] [id number] [address] [place] [phone] August, [facility] [address] [id number] [address] [place] [phone] Jul, [facility] [address] [id number] [address] [place] [phone] Jul, [facility] [address] [facility] [id number] [place] [address] 889841 Mar, [facility] [address] [id number] [address] [place] [phone] Mar, [facility] [address] [id number] [address] [place] [phone] Jan, [facility] [address] [id number] [address] [place] [phone] Jan, [facility] [address] [id number] [address] [place] [phone] Jan, IMMUNIZATIONS No Known Immunizations SOCIAL HISTORY Never Assessed REASON FOR VISIT med check, Back pain all the way down Lt. leg, [place] PLAN OF CARE Activity Details Follow Up prn Reason: VITAL SIGNS Height 65 in 2017-04-07 Weight 268.7 lbs 2017-04-07 Temperature 98.7 degrees Fahrenheit 2017-04-07 Heart Rate 99 bpm 2017-04-07 Respiratory Rate 16 2017-04-07 BMI 44.71 kg/m2 2017-04-07 Blood pressure systolic 130 mmHg 2017-04-07 Blood pressure diastolic 90 mmHg 2017-04-07 MEDICATIONS Medication Instructions Dosage Frequency Start Date End Date Duration S tatus Vitamin C 500 MG Orally Once a day 1 tablet 24h Not-Taking Ferrous Sulfate 325 (65 Fe) MG Orally twice a day 1 tablet 12h 26 2015 Unknown Duloxetine HCl 20 mg Orally Once a day 1 capsule 24h 05 Mar, 2017 30 day(s) Unknown Neurontin 800 MG Orally 2 times a day 1 tablet 12h 15 Sep, 2016 30 day(s) Unknown Meloxicam 10 MG Orally Once a day 1 capsule 24h Unknown Amitriptyline HCl 50 mg Orally Once a day at bedtime 1 tablet 30 day(s) Active RESULTS No Results PROCEDURES [...]
--- OUTSIDE RECORDS SUMMARY | 2019-11-18 19:40 | XMS REPORT ---
Author Author Juan ROCHA Organization [facility] [place] Address [address] [place] [address] Care Team Providers Care Gizzard Puller Name Role Phone JUAN ALBERTOMAHESH SEGOVIA Unavailable PROBLEMS Type Condition ICD9-CM Code [id number] Code Onset Dates Condition S tatus SNOMED Code Problem Primary osteoarthritis of both knees M17.0 Active 907440820 Problem Fibromyalgia M79.7 Active 6869708 05 Problem Unspecified hemorrhoids without mention of complication 45 5.6 Active 32112697 Problem Polyarticular arthritis M13.0 Active 98832271 Problem Iron deficiency anemia, unspecified iron deficiency an emia type D50.9 Active 58538699 ALLERGIES No Information ENCOUNTERS Encounter Location Date Diagnosis [facility] [place] [address] [facility] [address] [id number] [place], [place] [address] [id number] Mar, Fibromyalgia M79.7 [facility] [place] [address] [place] [address] C [id number] [place] [address] [id number] Mar, Acute left-sided low back pain without sciatica M54.5 [facility] [place] [address] [place] [address] C [id number] [place] [address] 624140 Mar, Fibromyalgia M79.7 [facility] [place] [address] [place] [address] C [id number] [place] [address] 466292 Mar, Fibromyalgia M79.7 [facility] [place] [address] [place] [address] C [id number] [place] [address] 700456 14 Dec, 2016 Ganglion of left wrist M67.432 and Fibromyalgia M79.7 [facility] [place] [address] [facility] [address] [id number] [place] [address] 455325 Nov, Fibromyalgia M79.7 [facility] [place] [address] [place] [address] C [id number] [place] [address] 474214 15 Sep, 2016 Polyarticular arthritis M13.0 ; Fibromyalgia M79.7 ; Irritable bowel syndrome with constipation K58.1 and Primary osteoarthritis of both knees M17.[address] [facility] [place] [address] [facility] [address] [id number] [place] [address] 801713 Sep, Fibromyalgia M79.7 [facility] [place] [address] [facility] [address] [id number] [place] [address] 281055 August, Fatigue, unspecified type R53.83 [facility] [place] [address] [facility] [address] [id number] [place], [place] [address] 001777 August, Fibromyalgia M79.7 [facility] [place] [address] [place] [address] C [id number] [place] [address] 028420 Jun, Polyarticular arthritis M13.0 ; Fibromyalgia M79.7 and Irritable bowel syndrome with constipation K58.[address] [facility] [place] [address] [facility] [address] [id number] [place] [address] 953185 Jun, Polyarticular arthritis M13.0 [facility] [place] [address] [facility] [address] [id number] [place], [place] [address] 096459 May, Polyarticular arthritis M13.0 [facility] [place] [address] [place] [address] C [id number] [place] [address] 537272 Jan, Arthralgia, unspecified joint M25.50 and Iron deficiency anemia, unspecified iron deficiency anemia type D50.9 [facility] [place] [address] [facility] [address] [id number] [place], [place] [address] 093343 Nov, Myalgia M79.1 and Iron deficiency anemia, unspecified iron deficiency anemia type D50.9 [facility] [place] [address] [place] [address] C [id number] [place] [address] 052117 Oct, Pain in left wrist M25.532 ; Pain in right wrist M25.531 ; Iron deficiency anemia, unspecified iron deficiency anemia type D50.9 and Constipation, unspecified constipation type K59.[address] [facility] [place] [address] [facility] [address] [id number] [place] [address] 622485 Oct, [facility] [place] [address] [place] [address] C [id number] [place] [address] 567231 Oct, Pain in right wrist M25.531 ; Pain in left wrist M25.532 and Elevated blood pressure I10 [facility] [address] [id number] [address] [place] [phone] Jul, [facility] [address] [id number] [address] [place] [phone] Jul, [facility] [address] [id number] [address] [place] [phone] August, [facility] [address] [id number] [address] [place] [phone] August, [facility] [address] [id number] [address] [place] [phone] Jul, [facility] [address] [id number] [address] [place] [phone] Jul, [facility] [place] [address] [facility] [address] [id number] [place] [address] 612408 Mar, [facility] [address] [id number] [address] [place] [phone] Mar, [facility] [address] [id number] [address] [place] [phone] Jan, [facility] [address] [id number] [address] [place] [phone] Jan, [facility] [address] [id number] [address] [place] [phone] Jan, IMMUNIZATIONS No Known Immunizations SOCIAL HISTORY Never Assessed REASON FOR VISIT repository med - Gabapentin PLAN OF CARE VITAL SIGNS MEDICATIONS Medication Instructions Dosage Frequency Start Date End Date Duration S tatus Neurontin 600 MG Orally 2 times a day 1 [...]
--- OUTSIDE RECORDS SUMMARY | 2019-11-18 19:40 | XMS REPORT ---
Author Author Juan MURPHY [facility] [employer] Address Unknown Phone Unavailable Care Team Providers Care Bag Filler Machine Operator Name Role Phone NIESHA MURPHY CP Unavailable Allergies, Adverse Reactions, Alerts Substance Reaction Event Type Codeine Phosphate Info Not Available Drug Allergy Plastic Tape Info Not Available Non Drug Allergy Problems Problem Type Condition Code Onset Dates Condition Statu s Assessment Iron deficiency anemia, unspecified iron deficiency anemia type D50.9 Active Assessment Constipation, unspecified constipation type K59.00 Active Problem Unspecified hemorrhoids without mention of complicatio n 455.6 Active Problem Diarrhea 787.91 Active Problem Dental examination V72.2 Active Assessment Pain in left wrist M25.532 Active Assessment Pain in right wrist M25.531 Active Problem Intestinal infection due to other organism, NEC 008.8 Active Problem Abdominal pain, right lower quadrant 789.03 Active Medications Medication Code System Code Instructions Start Date End Date Status Dosage Ferrous Sulfate [facility] [address]-02 325 (65 Fe) MG Orally tw ice a day November 24, 2015 1 tablet PredniSONE (Damien) [facility] [address]-27 10 MG Orally 4 tabs x 3 d, 3 tabs x 3 d, 2 tabs x 3 d, 1 tab x 3 d Procedures Procedure Coding System Code Date Office Visit, Est Pt., Level 3 CPT-4 90448 J joshua 2015 ASSAY OF IRON CPT-4 57997 November 24, 2015 COMPLETE CBC W/AUTO DIFF WBC CPT-4 85055 Oct IRON BINDING TEST CPT-4 94387 November 24, 2015 RHEUMATOID FACTOR, QUANT CPT-4 84408 October CCP ANTIBODY CPT-4 63703 November 24, 2015 VENIPUNCT, ROUTINE* CPT-4 55251 November 23, 6 VITAMIN B-12 CPT-4 82083 November 24, 2015 BLOOD FOLIC ACID SERUM CPT-4 42653 November 24, 2015 ASSAY OF FERRITIN CPT-4 42126 November 24, 2015 AUTOMATED RETICULOCYTE COUNT CPT-4 90961 Oct Vital Signs Date/Time: November 24, 2015 Blood Pressure Systolic 145 mmHg Weight 257 lbs Height 65 in BMI 42.76 Index Blood Pressure Diastolic 90 mmHg Results No Known Results Summary Purpose eClinicalWorks Submission
--- OUTSIDE RECORDS SUMMARY | 2019-11-18 19:40 | XMS REPORT ---
Author Author Juan ROCHA Organization [facility] Address [address] [place] [address] Care Team Providers Care [place] Man Name Role Phone MAHESH ROCHA Unavailable PROBLEMS Type Condition ICD9-CM Code [id number] Code Onset Dates Condition S tatus SNOMED Code Problem Primary osteoarthritis of both knees M17.0 Active 207955575 Problem Fibromyalgia M79.7 Active 5882992 05 Problem Unspecified hemorrhoids without mention of complication 45 5.6 Active 19118266 Problem Polyarticular arthritis M13.0 Active 86542178 Problem Iron deficiency anemia, unspecified iron deficiency an emia type D50.9 Active 71752429 ALLERGIES Substance Reaction Event Type Date Status Codeine Phosphate Unknown Drug Allergy Jun, Active Plastic Tape Unknown Non Drug Allergy Jun, Active SOCIAL HISTORY Never Assessed PLAN OF CARE Activity Details Follow Up 6 Weeks Reason:recheck fibro myalgia VITAL SIGNS Height 65 in 2016-07-14 Weight 247.0 lbs 2016-07-14 Temperature 98.3 degrees Fahrenheit 2016-07-14 Heart Rate 88 bpm 2016-07-14 Respiratory Rate 16 2016-07-14 BMI 41.10 kg/m2 2016-07-14 Blood pressure systolic 144 mmHg 2016-07-14 Blood pressure diastolic 80 mmHg 2016-07-14 MEDICATIONS Medication Instructions Dosage Frequency Start Date End Date Duration S tatus Senna 187 MG Orally Once a day 2 tablets at bedtime as needed 24h Active Amitriptyline HCl 50 mg Orally Once a day at bedtime 1/2 tablet Jun, 30 day(s) Active Ferrous Sulfate 325 (65 Fe) MG Orally twice a day 1 tablet 12h 2015 Active Cymbalta 20 MG Orally Once a day 1 capsule 24h 30 da y(s) Active Vitamin C 500 MG Orally Once a day 1 tablet 24h Active RESULTS No Results PROCEDURES No Known procedures IMMUNIZATIONS No Known Immunizations MEDICAL (GENERAL) HISTORY Type Description Date Medical History depression Medical History alopecia totalis Medical History preeclampsia Surgical History wisdom teeth extraction Surgical History cholecystectomy Surgical History right knee arthroscopy Surgical History section Surgical History dilatation and curettage Surgical History tubal ligation Hospitalization History Surgery(s)/Childbirth(s) only
--- OUTSIDE RECORDS SUMMARY | 2019-11-18 19:40 | XMS REPORT ---
Author Author Juan ROCHA Organization [facility] Address [address] [place] [address] Care Team Providers Care Marketing Production Coordinator Name Role Phone AJ MAHESH Unavailable PROBLEMS Type Condition ICD9-CM Code UEA48-ON Code Onset Dates Condition S tatus SNOMED Code Problem Primary osteoarthritis of both knees M17.0 Active 417891411 Problem Fibromyalgia M79.7 Active 1741255 05 Problem Unspecified hemorrhoids without mention of complication 45 5.6 Active 48742952 Problem Polyarticular arthritis M13.0 Active 68838440 Problem Iron deficiency anemia, unspecified iron deficiency an emia type D50.9 Active 48109647 ALLERGIES Substance Reaction Event Type Date Status Codeine Phosphate Unknown Drug Allergy Jun, Active Plastic Tape Unknown Non Drug Allergy Jun, Active SOCIAL HISTORY Never Assessed PLAN OF CARE Activity Details Follow Up 4 Weeks Reason:recheck condi tion VITAL SIGNS Height 65 in 2016-06-13 Weight 248.4 lbs 2016-06-13 Temperature 98.6 degrees Fahrenheit 2016-06-13 Heart Rate 68 bpm 2016-06-13 Respiratory Rate 16 2016-06-13 BMI 41.33 kg/m2 2016-06-13 Blood pressure systolic 130 mmHg 2016-06-13 Blood pressure diastolic 90 mmHg 2016-06-13 MEDICATIONS Medication Instructions Dosage Frequency Start Date End Date Duration S tatus Vitamin C 500 MG Orally Once a day 1 tablet 24h Active Ferrous Sulfate 325 (65 Fe) MG Orally twice a day 1 tablet 12h 2015 Active Cymbalta 30 MG Orally Once a day 1 capsule 24h 30 da y(s) Active Senna 187 MG Orally Once a day 2 tablets at bedtime as needed 24h Active RESULTS Name Result Date Reference Range Xray: Hands, Bilateral (IN HOUSE) 2016-06-13 PROCEDURES Procedure Date Ordered Result Body Site X-RAY EXAM OF HAND Jun 13, 2016 IMMUNIZATIONS No Known Immunizations MEDICAL (GENERAL) HISTORY Type Description Date Medical History depression Medical History alopecia totalis Medical History preeclampsia Surgical History wisdom teeth extraction Surgical History cholecystectomy Surgical History right knee arthroscopy Surgical History section Surgical History dilatation and curettage Surgical History tubal ligation Hospitalization History Surgery(s)/Childbirth(s) only
--- OUTSIDE RECORDS SUMMARY | 2019-11-18 19:40 | XMS REPORT ---
Author Author Juan ROCHA Organization [facility] [place] Address [address] [place] [address] Care Team Providers Care Apprentice Painter Brush Name Role Phone MAHESH ROCHA Unavailable PROBLEMS Type Condition ICD9-CM Code DUC03-YP Code Onset Dates Condition S tatus SNOMED Code Problem Primary osteoarthritis of both knees M17.0 Active 417969003 Problem Fibromyalgia M79.7 Active 4396863 05 Problem Unspecified hemorrhoids without mention of complication 45 5.6 Active 57068402 Problem Polyarticular arthritis M13.0 Active 32682470 Problem Iron deficiency anemia, unspecified iron deficiency an emia type D50.9 Active 51215007 ALLERGIES Substance Reaction Event Type Date Status Codeine Phosphate Unknown Drug Allergy Sep, Active Plastic Tape Unknown Non Drug Allergy Sep, Active ENCOUNTERS Encounter Location Date Diagnosis [facility] [place] [address] [facility] [address] [id number] [place], [place] [id number] Mar, Fibromyalgia M79.7 [facility] [place] [address] [facility] [address] [id number] [place], [place] [id number] Mar, Acute left-sided low back pain without sciatica M54.5 [facility] [place] [address] [facility] [address] [id number] [place], [place] [address] [id number] Mar, Fibromyalgia M79.7 [facility] [place] [address] [facility] [address] [id number] [place], [place] [address] 823[address] Mar, Fibromyalgia M79.7 [facility] [place] [address] [facility] [address] [id number] [place], [place] [address] 308018 Dec, Ganglion of left wrist M67.432 and Fibromyalgia M79.7 [facility] [place] [address] [facility] [address] [id number] [place], [place] [address] 693186 Nov, Fibromyalgia M79.7 [facility] [place] [address] [facility] [address] [id number] [place], [place] [address] 6248[address] Sep, Polyarticular arthritis M13.0 ; Fibromyalgia M79.7 ; Irritable bowel syndrome with constipation K58.1 and Primary osteoarthritis of both knees M17.0 [facility] [place] [address] [facility] [address] [id number] [place], [place] [address] 4686[address] Sep, Fibromyalgia M79.7 [facility] [place] [address] [place] [address] [address] [id number] [place], [place] [address] 6755[address] August, Fatigue, unspecified type R53.83 [facility] [place] [address] [place] [address] [address] [id number] [place], [place] [address] [id number] August, Fibromyalgia M79.7 [facility] [place] [address] [place] [address] [address] [id number] [place], [place] [address] 2538[address] Jun, Polyarticular arthritis M13.0 ; Fibromyalgia M79.7 and Irritable bowel syndrome with constipation K58.1 [facility] [place] [address] [place] [address] [address] [id number] [place], [place] [address] 575958 Jun, Polyarticular arthritis M13.0 [facility] [place] [address] [place] [address] [address] [id number] [place], [place] [address] 099897 May, Polyarticular arthritis M13.0 [facility] [place] [address] [place] [address] [address] [id number] [place], [place] [address] 712[address] Jan, Arthralgia, unspecified joint M25.50 and Iron deficiency anemia, unspecified iron deficiency anemia type D50.9 [facility] [place] [address] [facility] [address] [id number] [place], [place] [address] 175933 Nov, Myalgia M79.1 and Iron deficiency anemia, unspecified iron deficiency anemia type D50.9 [facility] [place] [address] [place] [address] [address] [id number] [place], [place] [address] 924673 Oct, Pain in left wrist M25.532 ; Pain in right wrist M25.531 ; Iron deficiency anemia, unspecified iron deficiency anemia type D50.9 and Constipation, unspecified constipation type K59.00 [facility] [place] [address] [facility] [address] [id number] [place], [place] [address] 719725 Oct, [facility] [place] [address] [place] [address] [address] [id number] [place], [place] [address] 667287 Oct, Pain in right wrist M25.531 ; Pain in left wrist M25.532 and Elevated blood pressure I10 [facility] [address] [id number] [address] [place] [phone] 14 Jul, 2014 [facility] [address] [id number] [address] [place] [phone] Jul, [facility] [address] [id number] [address] [place] [phone] August, [facility] [address] [id number] [address] [place] [phone] August, [facility] [address] [id number] [address] [place] [phone] Jul, [facility] [address] [id number] [address] [place] [phone] Jul, [facility] [address] [facility] [id number] [place], [place] [address] [id number] Mar, [facility] [address] [id number] [address] [place] [phone] Mar, [facility] [address] [id number] [address] [place] [phone] Jan, [facility] [address] [id number] [address] [place] [phone] Jan, [facility] [address] [id number] [address] [place] [phone] Jan, IMMUNIZATIONS No Known Immunizations SOCIAL HISTORY Never Assessed REASON FOR VISIT fibromyalgia, Follow up. Berta Wayne RN, Swelling in feet for about a week. ESC R N PLAN OF CARE Activity Details Follow Up 6 Weeks Reason:recheck condi tion VITAL SIGNS Height 65 in 2016-10-13 Weight 256.6 lbs 2016-10-13 Temperature 98.6 degrees Fahrenheit 2016-10-13 Heart Rate 72 bpm 2016-10-13 Respiratory Rate 16 2016-10-13 BMI 42.70 kg/m2 2016-10-13 Blood pressure systolic 134 mmHg 2016-10-13 Blood pressure diastolic 86 mmHg 2016-10-13 MEDICATIONS Medication Instructions Dosage Frequency Start Date End Date Duration S tatus Mobic 15 mg Orally Once a day 1 tablet 24h Sep, Dec, 30 day(s) Active Neurontin 600 MG Orally 2 times a day 1 tablet 12h Sep, 30 day(s) Active Vitamin C 500 MG Orally Once a day 1 tablet 24h Active Neurontin 300 MG Orally Three times a day 1 capsule 8h August, 30 day(s) Active Amitriptyline HCl 50 mg Orally Once a day at bedtime 1 tablet 30 day(s) Active Aleve 220 MG Orally every 12 hrs 1 tablet as needed 12h Active Ferrous Sulfate 325 (65 Fe) MG Orally twice a day 1 tablet 12h 2015 Active RESULTS No Results PROCEDURES No Known [...]
--- OUTSIDE RECORDS SUMMARY | 2019-11-18 19:40 | XMS REPORT | Continuity of Care Document ---
Demographics x Preferred Language Unknown Marital Status Unknown [employer] Affiliation Unknown Race Unknown Ethnic Group Unknown Author Organization Unknown Address Unknown Phone Unavailable Allergies Active Description Code Type Severity Reaction Onset Reported/Identified Relationship to Patient Clinical Status Yes codeine [id number] Drug Allergy Mild N/A 08/23/2010 Yes Plastic Tape OA N/A N/A 02/10/2012 Medications There is no data. Problems Date Dx Coded Attending Type Code Diagnosis Diagnosed By 02/10/2012 NIESHA MURPHY MD 008.8 GASTROENTERITIS, VIRAL 02/10/2012 NIESHA MURPHY MD 787.9 1 DIARRHEA 02/10/2012 NIESHA MURPHY MD 789.0 3 ABDOMINAL PAIN RIGHT LOWER QUADRANT 02/10/2012 MARTHA DDS, IMER Augustine 008.8 GASTROENTERITIS, VIRAL 02/10/2012 MARTHA DDS, IMER Augustine 787.91 DIARRHEA 02/10/2012 MARTHA DDS, IMER G 789.03 ABDOMINAL PAIN RIGHT LOWER QUADRANT 03/11/2013 NIESHA MURPHY MD 455.6 HEMORRHOIDS NOS 03/11/2013 MARTHA DDS, IMER Augustine 455.6 HEMORRHOIDS NOS 08/23/2013 MARTHA DDS, IMER G V72.2 DENTAL EXAMINATION 08/30/2013 MARTHA LEOSS, IMER G V72.2 DENTAL EXAMINATION 09/24/2013 JENNY HOPSON 642.4 3 MILD/NOS PREECLAMP-ANTEP 01/22/2019 KENDAL PAULSON Ot C49.A3 GASTROINTESTINAL STROMAL TUMOR OF SMALL 02/18/2019 KENDAL PAULSON Ot C49.A3 GASTROINTESTINAL STROMAL TUMOR OF SMALL 03/05/2019 KENDAL PAULSON Ot N63.10 UNSPECIFIED LUMP IN THE RIGHT BREAST, UN 03/05/2019 KENDAL PAULSON Ot R92.2 INCONCLUSIVE MAMMOGRAM 03/15/2019 KENDAL PAULSON Ot N63.10 UNSPECIFIED LUMP IN THE RIGHT BREAST, UN 03/15/2019 KENDAL PAULSON Ot R92.2 INCONCLUSIVE MAMMOGRAM 04/11/2019 KENDAL PAULSON Ot C49.A3 GASTROINTESTINAL STROMAL TUMOR OF SMALL 04/15/2019 LORENEKENDAL Ot C49.A3 GASTROINTESTINAL STROMAL TUMOR OF SMALL 05/10/2019 LORENE KENDAL Nguyen Ot N63.10 UNSPECIFIED LUMP IN THE RIGHT BREAST, UN 05/10/2019 LORENE, KENDAL Nguyen Ot R92.2 INCONCLUSIVE MAMMOGRAM 05/10/2019 KENDAL PAULSON Ot C49.A3 GASTROINTESTINAL STROMAL TUMOR OF SMALL 05/15/2019 JANESSA CRUZ MD Ot C49.A3 GASTROINTESTINAL STROMAL TUMOR OF SMALL 05/15/2019 JANESSA CRUZ MD Ot C49.A4 GASTROINTESTINAL STROMAL TUMOR OF LARGE 05/15/2019 JANESSA CRUZ MD Ot E66.01 MORBID (SEVERE) OBESITY DUE TO EXCESS CA 05/15/2019 JANESSA CRUZ MD Ot Z68.41 BODY MASS INDEX (BMI) 40.0-44.9, ADULT 05/23/2019 JANESSA CRUZ MD Ot C49.A3 GASTROINTESTINAL STROMAL TUMOR OF SMALL 05/23/2019 JANESSA CRUZ MD Ot C49.A4 GASTROINTESTINAL STROMAL TUMOR OF LARGE 05/23/2019 JANESSA CRUZ MD Ot E66.01 MORBID (SEVERE) OBESITY DUE TO EXCESS CA 05/23/2019 JANESSA CRUZ MD Ot Z68.41 BODY MASS INDEX (BMI) 40.0-44.9, ADULT 05/29/2019 KENDAL PAULSON Ot C49.A3 GASTROINTESTINAL STROMAL TUMOR OF SMALL 05/31/2019 KENDAL PAULSON Ot C49.A3 GASTROINTESTINAL STROMAL TUMOR OF SMALL 06/03/2019 KENDAL PAULSON Ot C49.A3 GASTROINTESTINAL STROMAL TUMOR OF SMALL 06/03/2019 KENDAL PAULSON Ot C49.A3 GASTROINTESTINAL STROMAL TUMOR OF SMALL 06/20/2019 KENDAL PAULSON Ot C49.A3 GASTROINTESTINAL STROMAL TUMOR OF SMALL 09/12/2019 KENDAL PAULSON Ot C49.A3 GASTROINTESTINAL STROMAL TUMOR OF SMALL 09/12/2019 KENDAL PAULSON Ot Z51.81 ENCOUNTER FOR THERAPEUTIC DRUG LEVEL MON 09/12/2019 KENDAL PAULSON Ot Z90.49 ACQUIRED ABSENCE OF OTHER SPECIFIED PART 11/14/2019 KENDAL PAULSON Ot C49.A3 GASTROINTESTINAL STROMAL TUMOR OF SMALL 11/14/2019 KENDAL PAULSON Ot Z51.81 ENCOUNTER FOR THERAPEUTIC DRUG LEVEL MON 11/14/2019 KENDAL PAULSON Ot Z90.49 ACQUIRED ABSENCE OF OTHER SPECIFIED PART 11/15/2019 KENDAL PAULSON Ot C49.A3 GASTROINTESTINAL STROMAL TUMOR OF SMALL 11/15/2019 KENDAL PAULSON Ot Z51.81 ENCOUNTER FOR THERAPEUTIC DRUG LEVEL MON 11/15/2019 KENDAL PAULSON Ot Z90.49 ACQUIRED ABSENCE OF OTHER SPECIFIED PART Procedures Code Description [place] D01[address] LIMI T ORAL EVAL PROBLM FOCUS 08/23/2013 D0220 INTR AORAL PERIAPICAL FIRST F 08/23/2013 D7140 EXTR ACTION ERUPTED TOOTH/EXR 08/23/2013 D0099 NO C HARGE/FOLLOW UP 08/30/2013 95520 FETA L BIOPHYS PROFIL W/O NST 09/24/2013 Results Test Result Range CULTURE, URINE - 03/29/18 17:28 CULTURE, URINE, ROUTINE SEE NOTE NRG CULTURE, THROAT - 06/30/18 12:48 CULTURE, THROAT SEE NOTE NRG Complete urinalysis with reflex to cultu re - 11/18/19 16:15 Urine color determination YELLOW NRG Urine clarity determination SL CLOUDY N RG Urine pH measurement by test strip 5.5 5-9 Specific gravity of urine by test strip > 1.016-1.022 Urine protein assay by test strip, semi-quantitative NEGATIVE NEGATIVE Urine glucose detection by automated test strip NE GATIVE NEGATIVE Erythrocytes detection in urine sediment by light micr oscopy NEGATIVE NEGATIVE Urine ketones detection by automated test strip NE GATIVE NEGATIVE Urine nitrite detection by test strip NEGATIVE NEGATIVE Urine total bilirubin detection by test strip 1+ NEGATIVE Urine urobilinogen measurement by automated test strip (mass/volume) 0.2 mg/dL < = 1.0 Urine leukocyte esterase detection by dipstick NEG ATIVE NEGATIVE Automated urine sediment erythrocyte cou nt by microscopy (number/high power field) NONE NRG Automated urine sediment leukocyte count by microscopy (number/high power field) NONE NRG Bacteria detection in urine sediment by light microsco py NONE NRG Squamous epithelial cells detection in u rine sediment by light microscopy 5-10 NRG Crystals detection in urine sediment by light microsco py NONE NRG Casts detection in urine sediment by light microscopy NONE NRG Mucus detection in urine sediment by light microscopy SMALL NRG Complete urinalysis with reflex to culture NO NRG Complete blood count (CBC) with automate d white blood cell (WBC) differential - 11/18/19 16:20 Blood leukocytes automated count (number/volume) 8.3 10*3/uL 4.3-11.0 Blood erythrocytes automated count (number/volume) 4.67 10*6/uL 4.35-5.85 Venous blood hemoglobin measurement (mass/volume) 13.2 g/dL 11.5-16.0 Blood hematocrit (volume fraction) 40 % 35-52 Automated erythrocyte mean corpuscular volume 86 [ foz_us] 80-99 Automated erythrocyte mean corpuscular h emoglobin (mass per erythrocyte) 28 pg 25-34 Automated erythrocyte mean corpuscular h emoglobin concentration measurement (mass/volume) 33 g/dL 32-36 Automated erythrocyte distribution width ratio 14. 8 % 10.0- 14.5 Automated blood platelet count (count/volume) 260 10*3/uL 130-400 Automated blood platelet mean volume measurement 9.9 [foz_us] 7.4-10.4 Automated blood neutrophils/100 leukocytes 78 % 42-75 Automated blood lymphocytes/100 leukocytes 15 % 12-44 Blood monocytes/100 leukocytes 5 % 0-12 Automated blood eosinophils/100 leukocytes 2 % 0-10 Automated blood basophils/100 leukocytes 0 % 0-10 Blood neutrophils automated count (number/volume) 6.4 10*3 1.8-7.8 Blood lymphocytes automated count (number/volume) 1.2 10*3 1.0-4.0 Blood monocytes automated count (number/volume) 0. 4 10*3 0.0-1.0 Automated eosinophil count 0.2 10*3/uL 0 .0-0.3 Automated blood basophil count (count/volume) 0.0 10*3/uL 0.0-0.1 Serum or plasma choriogonadotropin (preg all test) detection - 11/18/19 16:20 Serum or plasma choriogonadotropin ( test) de tection NEGATIVE NEGATIVE Comprehensive metabolic panel - 11/18/19 16:20 Serum or plasma sodium measurement (moles/volume) 141 mmol/L 135-145 Serum or plasma potassium measurement (moles/volume) 4.0 mmol/L 3.6-5.0 Serum or plasma chloride measurement (moles/volume) 102 mmol/L 98-107 Carbon dioxide 28 mmol/L 21-32 Serum or plasma anion gap determination (moles/volume) 11 mmol/L 5-14 Serum or plasma urea nitrogen measurement (mass/volume ) 22 mg/dL 7-18 Serum or plasma creatinine measurement (mass/volume) 1.04 mg/dL 0.60-1.30 Serum or plasma urea nitrogen/creatinine mass ratio 21 NRG Serum or plasma creatinine measurement w ith calculation of estimated glomerular filtration rate 60 NRG Serum or plasma glucose measurement (mass/volume) 146 mg/dL 70-105 Serum or plasma calcium measurement (mass/volume) 9.4 mg/dL 8.5-10.1 Serum or plasma total bilirubin measurement (mass/volu me) 0.3 mg/dL 0.1-1.0 Serum or plasma alkaline phosphatase duong surement (enzymatic activity/volume) 95 U/L 40-136 Serum or plasma aspartate aminotransfera se measurement (enzymatic activity/volume) 12 U/L 5-34 Serum or plasma alanine aminotransferase measurement (enzymatic activity/volume) 13 U/L 0-55 Serum or plasma protein measurement (mass/volume) 7.3 g/dL 6.4-8.2 Serum or plasma albumin measurement (mass/volume) 4.4 g/dL 3.2-4.5 CALCIUM CORRECTED 9.1 mg/dL 8.5-10.1 Lipase - 11/18/19 16:20 Lipase 18 U/L 8-78 PT panel in platelet poor plasma by coag ulation assay - 11/18/19 16:20 Prothrombin time (PT) in platelet poor plasma by coagu lation assay 13.5 s 12.2-14.7 INR in platelet poor plasma or blood by coagulation as say 1.0 0.8-1.4 Activated partial thromboplastin time (a PTT) in platelet poor plasma bycoagulation assay - 11/18/19 16:20 Activated partial thromboplastin time (a PTT) in platelet poor plasma bycoagulation assay 28 s 24-35 Encounters ACCT No. Visit Date/Time Discharge Status Pt. Type Provider Facility Loc./Unit Complaint [id number] 10/01/2013 08:00:00 10/01/2013 08:00 :00 DIS Outpatient JENNY HOPSON [facility] RAD [id number] 09/24/2013 08:02:00 09/24/2013 08:02 :00 DIS Outpatient JENNY HOPSON [facility] RAD [id number] 09/17/2013 08:14:00 09/17/2013 08:14 :00 DIS Outpatient JENNY HOPSON [facility] RAD [id number] 08/30/2013 07:53:00 08/30/2013 23:59: 59 CLS Outpatient MARTHA QUEZADAIMER Davide [id number] 03/11/2013 15:33:00 03/11/2013 23:59: 59 CLS Outpatient SINGER URIAS, NIESHA Rodriguez [id number] 11/14/2018 14:08:28 11/14/2018 23:59: 59 CLS Outpatient Bhaskar Cobos [id number] 10/23/2019 13:45:00 10/23/2019 23:59:5 9 CLS Outpatient ESME GARCIA [facility] [address] [id number] 06/30/2018 11:30:00 Document Registration [id number] 03/29/2018 16:30:00 Document Registration [id number] 08/16/2019 10:18:00 00:01:00 DIS Outpatient KENDAL PAULSON [facility] ONC [id number] 05/31/2019 10:12:00 020 23:59:59 CLS Outpatient KENDAL PAULSON V [facility] ONC [id number] 05/10/2019 12:35:00 23:59:59 CLS Outpatient ANTHONY URIAS, JANESSA Michel [facility] RAD FS GIST [id number] 03/01/2019 13:37:00 00:01:00 DIS Outpatient KENDAL PAULSON V [facility] ONC [id number] 03/01/2019 12:53:00 23:59:59 CLS Outpatient KENDAL PAULSON V [facility] RAD ABN MAMMO RT BREAST [id number] 11/18/2019 16:02:[address] Emergency REGINE ARGUETA DO [facility] ER FS ABD PAIN/BLOOD IN STOOL
--- OUTSIDE RECORDS SUMMARY | 2019-11-18 19:40 | XMS REPORT ---
Author Author Juan ROCHA Organization [facility] Address [address] [place] [address] Care Team Providers Care Supplies Packer Name Role Phone MAHESH ROCHA Unavailable PROBLEMS Type Condition ICD9-CM Code GIY33-YU Code Onset Dates Condition S tatus SNOMED Code Problem Primary osteoarthritis of both knees M17.0 Active 639284421 Problem Fibromyalgia M79.7 Active 0383788 05 Problem Unspecified hemorrhoids without mention of complication 45 5.6 Active 11360297 Problem Polyarticular arthritis M13.0 Active 33436898 Problem Iron deficiency anemia, unspecified iron deficiency an emia type D50.9 Active 61758995 ALLERGIES No Information SOCIAL HISTORY Never Assessed PLAN OF CARE VITAL SIGNS MEDICATIONS Medication Instructions Dosage Frequency Start Date End Date Duration S tatus Neurontin 300 MG Orally Three times a day 1 capsule 8h August, 30 day(s) Active RESULTS No Results PROCEDURES [...]
--- OUTSIDE RECORDS SUMMARY | 2019-11-18 19:40 | XMS REPORT ---
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 Active 94912723 Problem Iron deficiency anemia, unspecified iron deficiency an emia type D50.9 Active 64971919 ALLERGIES No Information ENCOUNTERS Encounter Location Date Diagnosis [facility] [place] [address] [facility] C [id number] [place], [place] [address] [id number] Mar, Fibromyalgia M79.7 [facility] [place] [address] [place] [address] C [id number] [place], [place] [address] [id number] Mar, Acute left-sided low back pain without sciatica M54.5 [facility] [place] [address] [place] [address] C [id number] [place], [place] [address] [id number] Mar, Fibromyalgia M79.7 [facility] [place] [address] [place] [address] C [id number] [place], [place] [address] [id number] Mar, Fibromyalgia M79.7 [facility] [place] [address] [place] [address] C [id number] [place], [place] [address] [id number] 14 Dec, 2016 Ganglion of left wrist M67.432 and Fibromyalgia M79.7 [facility] [place] [address] [facility] C [id number] [place], [place] [address] [id number] Nov, Fibromyalgia M79.7 [facility] [place] [address] [place] [address] C [id number] [place], [place] [address] [id number] 15 Sep, 2016 Polyarticular arthritis M13.0 ; Fibromyalgia M79.7 ; Irritable bowel syndrome with constipation K58.1 and Primary osteoarthritis of both knees M17.0 [facility] [place] [address] [facility] [address] [id number] [place], [place] [address] 297341 Sep, Fibromyalgia M79.7 [facility] [place] [address] [facility] C [id number] [place], [place] [address] 298654 August, Fatigue, unspecified type R53.83 [facility] [place] [address] [facility] C [id number] [place], [place] [address] [id number] August, Fibromyalgia M79.7 [facility] [place] [address] [place] [address] C [id number] [place], [place] [address] 079142 Jun, Polyarticular arthritis M13.0 ; Fibromyalgia M79.7 and Irritable bowel syndrome with constipation K58.1 [facility] [place] [address] [facility] [address] [id number] [place], [place] [address] 555448 Jun, Polyarticular arthritis M13.0 [facility] [place] [address] [facility] C [id number] [place], [place] [address] [id number] May, Polyarticular arthritis M13.0 [facility] [place] [address] [place] [address] C [id number] [place], [place] [address] 189348 Jan, Arthralgia, unspecified joint M25.50 and Iron deficiency anemia, unspecified iron deficiency anemia type D50.9 [facility] [place] [address] [facility] C [id number] [place], [place] [address] 039596 Nov, Myalgia M79.1 and Iron deficiency anemia, unspecified iron deficiency anemia type D50.9 [facility] [place] [address] [place] [address] C [id number] [place], [place] [address] 010817 Oct, Pain in left wrist M25.532 ; Pain in right wrist M25.531 ; Iron deficiency anemia, unspecified iron deficiency anemia type D50.9 and Constipation, unspecified constipation type K59.00 [facility] [place] [address] [facility] [address] [id number] [place], [place] [address] [id number] Oct, [facility] [place] [address] [place] [address] C [id number] [place], [place] [address] [id number] Oct, Pain in right wrist M25.531 ; Pain in left wrist M25.532 and Elevated blood pressure I10 [facility] [address] [id number] [address] [place] [phone] 14 Jul, 2014 [facility] [address] [id number] [address] [place] [phone] Jul, [facility] [address] [id number] [address] [place] [phone] August, [facility] [address] [id number] [address] [place] [phone] August, [facility] [address] [id number] [address] [place] [phone] Jul, [facility] [address] [id number] [address] [place] [phone] Jul, [facility] [address] [facility] [address] [id number] [place], [place] [address] [id number] Mar, [facility] [address] [id number] [address] [place] [phone] Mar, [facility] [address] [id number] [address] [place] [phone] Jan, [facility] [address] [id number] [address] [place] [phone] Jan, [facility] [address] [id number] [address] [place] [phone] Jan, IMMUNIZATIONS No Known Immunizations SOCIAL HISTORY Never Assessed REASON FOR VISIT repository refill- Duloxetine PLAN OF CARE VITAL SIGNS MEDICATIONS Medication Instructions Dosage Frequency Start Date End Date Duration S ghada Duloxetine HCl 20 mg Orally Once a day 1 capsule 24h Mar, 30 day(s) Active RESULTS No Results PROCEDURES [...]
== END 2019-11-18 18:31 | disposition home or self-care (01) ==
LOC: EDUNIT# 16:01 → ER FS 16:02
DX: K52.9 Noninfective gastroenteritis and colitis, unspecified (principal); Z88.5 Allergy status to narcotic agent; Z85.068 Personal history of other malignant neoplasm of small intestine
CPT/HCPCS: 36415; 74022; 74177; 80053; 81000; 83690; 84703; 85025; 85610; 85730

== ENCOUNTER → 2020-03-04 | Outpatient (CLI) | payer BC ==
[~2020-03-04] MED LIST changes: +CATHETER FLUSH 10 ML SYR IV PRN; +HOLD METFORMIN - RECEIVED CONTRAST 20 ML VIAL IV SCH; +IOHEXOL 350 MG/ML 100 ML (OMNIPAQUE 350) VIAL IV ONE; +NS 100 ML (IVPB) BAG IV ONE
--- NOTE | 2020-03-04 08:59 | Diagnostic Imaging Report ---
PROCEDURE: CT abdomen and pelvis with contrast. TECHNIQUE: Multiple contiguous axial images were obtained through the abdomen and pelvis after administration of intravenous contrast. Auto Exposure Controls were utilized during the CT exam to meet ALARA standards for radiation dose reduction. All CT scans use one or more of the following dose optimizing techniques: automated exposure control, MA and/or KvP adjustment based on patient size and exam type or iterative reconstruction. INDICATION: 3 weeks history of left upper quadrant pain, history of gist tumor, previous cholecystectomy. COMPARISON: Abdominopelvic CT of 11/18/2019. FINDINGS: Gallbladder surgically absent. No pathological bile duct dilatation. No liver mass or evidence for hepatic metastases. The adrenals are negative. Spleen nonfocal within the upper limits of normal for size stable. The pancreas and its duct as well as the peripancreatic fat appeared normal. There is diminished distention of the left colon but it did not appear intrinsically pathologic. Previous left pericolonic edema is no longer found. No convincing evidence of generalized or segmental colitis. There is some fluid within the lumen of pelvic small bowel loops. Small bowel wall is non-thickened. There is no perienteric edema. No abscess, hematoma or acute fluid collection. No pneumatosis or free gas. Aortoiliac and mesenteric vessels patent and nonaneurysmal. There is a simple appearing unilocular left ovarian cyst likely a dominant follicle at 2.3 cm. Delayed images, most conspicuously demonstrate multiple cervical nabothian cysts unchanged. The abdominal wall intact. No mesenteric or retroperitoneal adenopathy. There is no ascites. IMPRESSION: Likely physiologic left ovarian cyst, chronic cervical nabothian cysts stable, no findings of focal or generalized colitis at follow-up. No bowel, biliary or urinary tract obstruction. No mass, metastasis or evidence for acute inflammatory process. Dictated by: Dictated on workstation # [id number]
== END ==
LOC: RAD FS 07:57
PROVIDERS: ATTEND Nurse Practitioner Family
DX: N88.8 Other specified noninflammatory disorders of cervix uteri (principal); Z85.09 Personal history of malignant neoplasm of other digestive organs; Z90.49 Acquired absence of other specified parts of digestive tract
CPT/HCPCS: 74177

== ENCOUNTER 2020-07-14 15:04 | Emergency (ER) | payer BC ==
[~2020-07-14 15:04] MED LIST changes: -CATHETER FLUSH 10 ML SYR IV PRN; -HOLD METFORMIN - RECEIVED CONTRAST 20 ML VIAL IV SCH; -IOHEXOL 350 MG/ML 100 ML (OMNIPAQUE 350) VIAL IV ONE; -NS 100 ML (IVPB) BAG IV ONE
[2020-07-14 15:13] VITALS: BP 162/84
--- NOTE | 2020-07-14 15:14 | ED General ---
General Chief Complaint: General Problems/Pain Stated Complaint: CHEST PAIN Source of Information: Patient Exam Limitations: No Limitations History of Present Illness Date Seen by Provider: Jul 14, 2020 Time Seen by Provider: 15:13 Initial Comments Patient presents with palpitations and left-sided chest pain for the past 3 days. History of anxiety, although she states "this is different". Admits to the nurse that she broke up with her boyfriend last night and this is caused grief and stress. Denies recent illness, fever chills or cough. Chest pain is intermittent, worse with deep breathing or certain movements. She has a history of fibromyalgia. Denies nausea, vomiting or diaphoresis. Allergies and Home Medications Allergies Coded Allergies: codeine (Unverified Adverse Reaction, Mild, 08/23/10) Home Medications Ferrous Sulfate 325 Mg Tablet, 1 TAB PO BID, (Reported) Oxycodone Hcl/Acetaminophen 1 Each Tablet, 1 EACH PO Q4H, (Reported) As needed for pain Vits W-Ca,Fe,Fa(<1MG) 1 Each Tablet, 1 EACH PO DAILY, (Reported) Take for as long as Patient Home Medication List Home Medication List Reviewed: Yes Review of Systems Review of Systems Constitutional: No chills, No dizziness, No fever, No malaise, No weakness EENTM: no symptoms reported Respiratory: No cough, No short of breath Cardiovascular: see HPI, chest pain; No edema, No Hx of Intervention; palpitations; No syncope, No vascular heart diseas Gastrointestinal: No abdominal pain, No nausea, No vomiting Musculoskeletal: No joint pain; muscle pain (chronic- fibromyalgia) Skin: No change in color, No lesions, No rash Psychiatric/Neurological: Anxiety, Depressed, Emotional Problems; Denies Headache, Denies Numbness, Denies Paresthesia Past Pxugbes-Ukijow-Rfelud Hx Past Med/Social Hx: Reviewed Nursing Past Med/Soc Hx Patient Social History Alcohol Use: Denies Use 2nd Hand Smoke Exposure: No Recent Hopitalizations: Yes (CHILDBIRTH X2) Substance type: Marijuana (daily- vapes it) Past Medical History Surgeries: Yes (CHOLECYSTECTOMY 2005,RIGHT KNEE SURGERY 2008,WISDOM TEETH 1998,D AND C 2009) Respiratory: No Cardiac: Yes Hypertension Neurological: No Reproductive Disorders: No Genitourinary: No Gastrointestinal: Yes (duodenal cancer ) Musculoskeletal: Yes Fibromyalgia Endocrine: Yes Hypothyroidsim HEENT: No Cancer: Yes (duodenal cancer ) Psychosocial: Yes Anxiety, Depression Integumentary: No Blood Disorders: Yes Physical Exam Vital Signs Vital Signs - First Documented 07/14/20 15:13 Temp 36.7 Pulse 90 Resp 28 B/P (MAP) 162/84 (110) Pulse Ox 100 Capillary Refill : Height, Weight, BMI Height: '" Weight: lbs. oz. kg; 35.00 BMI Method: General Appearance: WD/WN, Anxious Eyes: Bilateral Eye Normal Inspection, Bilateral Eye PERRL, Bilateral Eye EOMI HEENT: PERRL/EOMI, Normal ENT Inspection Neck: Non Tender, Supple Respiratory: Chest Non Tender, Lungs Clear, Normal Breath Sounds, No Accessory Muscle Use, No Respiratory Distress Cardiovascular: Regular Rate, Rhythm, No Edema, No Gallop, No JVD, No Murmur, Normal Peripheral Pulses Gastrointestinal: Normal Bowel Sounds, No Organomegaly, Non Tender, Soft Back: Normal Inspection, No CVA Tenderness Extremity: Normal Capillary Refill, Normal Inspection, Non Tender Neurologic/Psychiatric: Alert, Oriented x3, No Motor/Sensory Deficits, Normal Mood/Affect Skin: Normal Color, Warm/Dry Progress/Results/Core Measures Suspected Sepsis SIRS Temperature: Pulse: Respiratory Rate: Laboratory Tests 07/14/20 15:25: White Blood Count 5.9 Blood Pressure / Mean: Laboratory Tests 07/14/20 15:25: Creatinine 0.75, Platelet Count 297 Results/Orders Lab Results Laboratory Tests Test 07/14/20 15:25 Range/Units White Blood Count 5.9 4.3-11.0 10^3/uL Red Blood Count 4.30 L 4.35-5.85 10^6/uL Hemoglobin 12.6 11.5-16.0 G/DL Hematocrit 36 35-52 % Mean Corpuscular Volume 83 80-99 FL Mean Corpuscular Hemoglobin 29 25-34 PG Mean Corpuscular Hemoglobin Concent 35 32-36 G/DL Red Cell Distribution Width 13.7 10.0-14.5 % Platelet Count 297 130-400 10^3/uL Mean Platelet Volume 10.0 7.4-10.4 FL Immature Granulocyte % (Auto) 0 % Neutrophils (%) (Auto) 75 42-75 % Lymphocytes (%) (Auto) 19 12-44 % Monocytes (%) (Auto) 6 0-12 % Eosinophils (%) (Auto) 0 0-10 % Basophils (%) (Auto) 0 0-10 % Neutrophils # (Auto) 4.4 1.8-7.8 X 10^3 Lymphocytes # (Auto) 1.1 1.0-4.0 X 10^3 Monocytes # (Auto) 0.4 0.0-1.0 X 10^3 Eosinophils # (Auto) 0.0 0.0-0.3 10^3/uL Basophils # (Auto) 0.0 0.0-0.1 10^3/uL Immature Granulocyte # (Auto) 0.0 0.0-0.1 10^3/uL Sodium Level 140 135-145 MMOL/L Potassium Level 3.1 L 3.6-5.0 MMOL/L Chloride Level 102 98-107 MMOL/L Carbon Dioxide Level 26 21-32 MMOL/L Anion Gap 12 5-14 MMOL/L Blood Urea Nitrogen 21 H 7-18 MG/DL Creatinine 0.75 0.60-1.30 MG/DL Estimat Glomerular Filtration Rate > 60 BUN/Creatinine Ratio 28 Glucose Level 100 70-105 MG/DL Calcium Level 9.2 8.5-10.1 MG/DL Troponin I < 0.30 <0.30 NG/ML My Orders Orders - JOELLEN NEWTON DO Ed Iv/Invasive Line Start (07/14/20 15:07) Ekg Tracing (07/14/20 15:07) Troponin I Fs (07/14/20 15:25) Cbc With Automated Diff (07/14/20 15:25) Basic Metabolic Panel (07/14/20 15:25) Chest 1 View Ap/Pa Only (07/14/20 15:25) Vital Signs/I&O 07/14/20 15:13 Temp 36.7 Pulse 90 Resp 28 B/P (MAP) 162/84 (110) Pulse Ox 100 Capillary Refill : ECG Initial ECG Impression Date: Jul 14, 2020 Initial ECG Impression Time: 15:13 Initial ECG Rate: 87 Initial ECG Rhythm: Normal Sinus Initial ECG Impression: Normal Initial ECG Comparisson: No Previous ECG Available Comment no ST changes, no etopy Departure Impression Primary Impression: Anxiety Disposition: 01 HOME, SELF-CARE Condition: Improved Departure-Patient Inst. Decision time for Depature: 16:03 Referrals: NO,LOCAL PHYSICIAN (PCP) Primary Care Physician JENNY WORTHY (Family) Primary Care Physician Patient Instructions: Anxiety, Adult (DC) Add. Discharge Instructions: follow up with your PCP in 1 week regarding your anxiety All discharge instructions reviewed with patient and/or family. Voiced understanding. JOELLEN NEWTON DO Jul 14, 2020 15:14
[2020-07-14] MEDS ORDERED: NS IV 1000 ML 1,000 ML IV SCH (15:15)
[2020-07-14 15:52] LABS: HEMATOCRIT 36 % (35-52); HEMOGLOBIN 12.6 G/DL (11.5-16.0); MEAN CORPUSCULAR HEMOGLOBIN 29 PG (25-34); MEAN CORPUSCULAR VOLUME 83 FL (80-99); WHITE BLOOD COUNT 5.9 10^3/uL (4.3-11.0)
[2020-07-14 15:53] LABS: BASOPHILS % (AUTO) 0 % (0-10); EOSINOPHILS % (AUTO) 0 % (0-10); LYMPHOCYTES # (AUTO) 1.1 X 10^3 (1.0-4.0); LYMPHOCYTES % (AUTO) 19 % (12-44); MEAN CORPUSCULAR HGB CONC 35 G/DL (32-36); MONOCYTES # (AUTO) 0.4 X 10^3 (0.0-1.0); MONOCYTES % (AUTO) 6 % (0-12); NEUTROPHILS # (AUTO) 4.4 X 10^3 (1.8-7.8); NEUTROPHILS % (AUTO) 75 % (42-75); PLATELET COUNT 297 10^3/uL (130-400)
[2020-07-14 16:00] LABS: BUN/CREATININE RATIO 28; CALCIUM 9.2 MG/DL (8.5-10.1); CARBON DIOXIDE 26 MMOL/L (21-32); CHLORIDE 102 MMOL/L (98-107); CREATININE SERUM 0.75 MG/DL (0.60-1.30); GFR ESTIMATED > 60; GLUCOSE 100 MG/DL (70-105); POTASSIUM 3.1 MMOL/L (3.6-5.0); SODIUM 140 MMOL/L (135-145)
--- NOTE | 2020-07-14 16:01 | Diagnostic Imaging Report ---
Indication: Chest pain Single AP view of the chest is obtained with comparison made study of 11/18/2019. FINDINGS: Heart size and pulmonary vascularity are within normal limits, and the lungs are clear, bilaterally. IMPRESSION: Unremarkable chest. Dictated by: Dictated on workstation # [id number]
== END 2020-07-14 16:06 | disposition home or self-care (01) ==
LOC: EDUNIT# 15:04 → ER FS 15:06
DX: F41.9 Anxiety disorder, unspecified (principal); I10 Essential (primary) hypertension; Z88.5 Allergy status to narcotic agent; Z85.068 Personal history of other malignant neoplasm of small intestine
CPT/HCPCS: 36415; 71045; 80048; 84484; 85025; 93005

== ENCOUNTER → 2021-05-18 | Outpatient (CLI) | payer MEDICARE ==
--- NOTE | 2021-05-18 13:19 | Diagnostic Imaging Report ---
INDICATION: Right shoulder pain radiating to the arm with hand tingling. TIME OF EXAM: 12:02 PM 3 views of the cervical spine were obtained. FINDINGS: There is reversal of the normal cervical lordotic curvature. There is minimal retrolisthesis of C4 on C5 and C5 on C6. There is significant degenerative disc disease C4-C5, C5-C6 and C6-C7 levels, with disc space narrowing and marginal spurring. Prevertebral tissues are normal. Odontoid appears intact and no fractures are seen. IMPRESSION: Cervical spondylosis with reversal of normal curvature. No acute bony abnormality is detected. Dictated by: Dictated on workstation # [id number]
== END ==
LOC: RAD FS 11:50
PROVIDERS: ATTEND Family Medicine
DX: M47.812 Spondylosis without myelopathy or radiculopathy, cervical region (principal); E03.9 Hypothyroidism, unspecified
CPT/HCPCS: 72040

== ENCOUNTER 2021-08-20 03:02 | Emergency (ER) | payer MEDICAID ==
--- NOTE | 2021-08-20 03:39 | ED General ---
General Chief Complaint: Bite-Animal/Human/Insect Stated Complaint: ANIMAL BITE Nursing Triage Note: Pt presents with a dog bite to left ring finger. 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 tetatnus is upto date. Timing/Duration: 1-3 Hours Severity: Mild Modifying Factors: improves with Other Associated Systoms: Other Allergies and Home Medications Allergies Coded Allergies: codeine (Unverified Adverse Reaction, Mild, 08/23/10) Patient Home Medication List Home Medication List Reviewed: Yes Ferrous Sulfate (Iron) 325 Mg Tablet, 1 TAB PO BID, (Reported) Entered as Reported by: VIDHI MAXWELL on 02/14/11904 Oxycodone Hcl/Acetaminophen (Percocet 5-325 Mg Tablet) 1 Each Tablet, 1 EACH PO Q4H, (Reported) Entered as Reported by: VIDHI MAXWELL on 02/14/11904 Vits W-Ca,Fe,Fa(<1MG) ( Vitamins) 1 Each Tablet, 1 EACH PO DAILY, (Reported) Entered as Reported by: VIDHI MAXWELL on 02/14/11904 Review of Systems Review of Systems Constitutional: see HPI Musculoskeletal: see HPI Past Lynuhjj-Fkthmz-Mptgdo Hx Patient Social History Tobacco Use?: No Use of E-Cig and/or Vaping dev: No Substance use?: No Alcohol Use?: No Pt feels they are or have been: No Past Medical History Surgeries: Yes (CHOLECYSTECTOMY 2005,RIGHT KNEE SURGERY 2008,WISDOM TEETH 1998,D AND C 2009) Section, Orthopedic, Tubal Ligation Respiratory: No Cardiac: Yes Hypertension Neurological: No Reproductive Disorders: No Genitourinary: No Gastrointestinal: Yes (duodenal cancer ) Musculoskeletal: Yes Fibromyalgia Endocrine: Yes Hypothyroidsim HEENT: No Cancer: Yes (duodenal cancer ) Psychosocial: Yes Anxiety, Depression Integumentary: No Blood Disorders: Yes Physical Exam Vital Signs Vital Signs - First Documented 08/20/21 03:07 Pulse 92 Resp 16 B/P (MAP) 154/97 (116) Pulse Ox 100 O2 Delivery Room Air Capillary Refill : Less Than 3 Seconds Height, Weight, BMI Height: '" Weight: lbs. oz. kg; 35.00 BMI Method: General Appearance: No Apparent Distress, WD/WN Extremity: Other (3 cm dog bite/skin tear to flexor surface of L mid ring finger) Neurologic/Psychiatric: Alert, Oriented x3 Focused Exam Sepsis Stage: Ruled Out Progress/Results/Core Measures Suspected Sepsis SIRS Temperature: Pulse: 92 Respiratory Rate: 16 Blood Pressure 154 /97 Mean: 116 Results/Orders My Orders Orders - SOFIYA OSORIO DO Amoxicillin/Clavulanate Tablet (Augmenti (08/20/21 03:45) Vital Signs/I&O 08/20/21 03:07 Pulse 92 Resp 16 B/P (MAP) 154/97 (116) Pulse Ox 100 O2 Delivery Room Air Capillary Refill : Less Than 3 Seconds 2 Blood Pressure Mean: 116 Departure Communication (Admissions) Wound cleansed and bandaged. First dose of abx given. Return precautions reviewed. Impression Primary Impression: Open wound of left ring finger due to dog bite Disposition: 01 HOME, SELF-CARE Condition: Stable Departure-Patient Inst. Decision time for Depature: 03:40 Referrals: NO,LOCAL PHYSICIAN (PCP) Primary Care Physician JENNY WORTHY (Family) Primary Care Physician Patient Instructions: Animal Bites ED Add. Discharge Instructions: Please take antibioticss as directed andf follow up with your PCP in 3-5 days for re-evaluation. Return to the ED if new or concerning symptoms. All discharge instructions reviewed with patient and/or family. Voiced understanding. SOFIYA OSORIO DO Aug 20, 2021 03:39
[2021-08-20 03:42] VITALS: BP 154/97
[2021-08-20] MEDS ORDERED: AUGMENTIN 875 MG TAB (AMOXICILLIN/CLAVULANATE) PO SCH (03:45)
[2021-08-20] MEDS ORDERED: AMOX-356 PO (03:46)
== END 2021-08-20 03:45 | disposition home or self-care (01) ==
LOC: EDUNIT# 03:02 → ER FS 03:06
DX: S61.255A Open bite of left ring finger without damage to nail, initial encounter (principal); W54.0XXA Bitten by dog, initial encounter
CPT/HCPCS: 99283